=== PATIENT | male | born 1970 | race Hispanic/Latino ===

== ENCOUNTER 2017-04-16 19:18 | Inpatient (IN) | payer MEDICARE, OTHER ==
[2017-04-16] MEDS ORDERED: DiphenhydrAMINE 50 mg/ml Inj ONE (19:34)
--- NOTE | 2017-04-16 19:37 | ED PDOC ---
Arrival/HPI - General Time Seen by Provider: 04/16/17 19:21 Historian: Patient EM Caveat: Psychotic - History of Present Illness Narrative History of Present Illness (Text): 04/16/17 19:36 46 year old male presents to the emergency department after reportedly becoming agitated and aggressive at [facility] prior to arrival. Past Medical History - Provider Review Nursing Documentation Reviewed: Yes - Infectious Disease Hx of Infectious Diseases: None - Tetanus Immunization Tetanus Immunization: Unknown - Past Medical History Past Medical History: No Previous - Cardiac Hx Cardiac Disorders: No Hx Hypertension: Yes - Pulmonary Hx Tuberculosis: No - Neurological HX Cerebrovascular Accident: No Hx Seizures: No - HEENT Hx HEENT Disorder: No - Renal Hx Renal Disorder: No - Endocrine/Metabolic Hx Endocrine Disorders: No - Hematological/Oncological Hx Blood Disorders: No - Integumentary Hx Dermatological Disorder: No - Musculoskeletal/Rheumatological Hx Musculoskeletal Disorders: No Hx Falls: No - Gastrointestinal Hx Gastrointestinal Disorders: No - Genitourinary/Gynecological Hx Sexually Transmitted Diseases: No - Psychiatric Hx Anxiety: Yes Hx Depression: Yes Hx Schizophrenia: Yes (paranoid) Hx Substance Use: Yes - Past Surgical History Past Surgical History: No Previous - Anesthesia Hx Anesthesia: No - Suicidal Assessment Feels Threatened In Home Enviroment: No Family/Social History - Physician Review Nursing Documentation Reviewed: Yes Family/Social History: Unknown Family HX Smoking Status: Former Smoker Hx Alcohol Use: Yes Hx Substance Use: Yes Hx Substance Use Treatment: No Allergies/Home Meds Allergies/Adverse Reactions: Allergies No Known Allergies Allergy (Verified 03/23/16 03:18) Review of Systems - Review of Systems Systems not reviewed;Unavailable: Psychotic Physical Exam - Physical Exam Narrative Physical Exam (Text): - Physical exam Patient appears age appropriate, speaking full sentences without difficulty - Systems Exam Head: Present: Atraumatic, Normocephalic Pupils: Present: PERRL Extraocular Muscles: Present: EOMI Conjunctiva: Present: Normal Mouth: Present: Moist Mucous Membranes Neck: Present: Normal Range of Motion. No: MIDLINE TENDERNESS, Paraspinal Tenderness Respiratory/Chest: Present: Clear to Auscultation, Good Air Exchange. No: Respiratory Distress, Accessory Muscle Use, Tachypnic Cardiovascular: Present: Regular Rate and Rhythm, Normal S1, S2, Peripheral Pulses Present. No: Murmurs Abdomen: Present: Normal Bowel Sounds, No: Tenderness, Peritoneal Signs, Rebound, Guarding, Distention Back: Present: Normal Inspection. No: Midline Tenderness, Paraspinal Tenderness Upper Extremity: Present: Normal Inspection. No: Cyanosis, Edema Lower Extremity: Present: Normal Inspection. No: Edema Neurological: Present: GCS=15, Speech Normal, cranial nerves II through XII fully intact with no cerebellar abnormality, neuro-sensory fully intact. No focal neurological deficits. Skin: Present: Warm, Dry, Normal Color. No: Rashes Lymphatic: Present: OX3, NI, NC Psychiatric: Present: Alert, denies suicidal or homicidal ideations. Yelling, aggressive, combative. Vital Signs Reviewed: Yes Vital Signs Temp Pulse Resp BP Pulse Ox 04/16/17 20:35 94 H 16 114/82 95 04/16/17 19:43 20 04/16/17 19:24 98.9 F 104 H 18 159/100 H 96 Temperature: Afebrile Blood Pressure: Hypertensive Pulse: Tachycardic Respiratory Rate: Normal Appearance: Positive for: Well-Appearing, Non-Toxic, Comfortable Pain Distress: None Medical Decision Making ED Course and Treatment: Impression: 38-year-old male brought in combative, aggressive, agitated. Attempted verbal de -escalation and offered oral medications to help patient calmed down. Patient is not consolable. Patient presenting a danger to himself, staff, the patient's. Has been sedated for his protection Plan: -- Ativan, Benadryl, Haldol -- EKG, Chest X-ray -- Labs -- Reassess and disposition Prior Visits: Notes and results from previous visits were reviewed. Patient last seen in the ED on 03/23/16 for agitation, auditory hallucinations, and discharged home. Progress Notes: 04/16/17 21:[address] Cartagena in stable condition, pending monitoring, reeval, dispo - Lab Interpretations Lab Results: 04/16/17 20:30 04/16/17 20:30 Lab Results 04/16/17 20:30: Alcohol, Quantitative < 10 04/16/17 20:30: Salicylates < 1 L, Acetaminophen < 10.0 L 04/16/17 20:30: Sodium 136, Potassium 3.3 L, Chloride 103, Carbon Dioxide 23, Anion Gap 13, BUN 12, Creatinine 0.8, Est GFR ( Amer) > 60, Est GFR (Non- Af Amer) > 60, Random Glucose 138 H, Calcium 8.4, Total Bilirubin 1.8 H, AST 73 H, ALT 110 H, Alkaline Phosphatase 117, Total Protein 7.2, Albumin 4.1, Globulin 3.2, Albumin/Globulin Ratio 1.3 04/16/17 20:30: WBC 2.9 L* D, RBC 4.33, Hgb 14.0, Hct 38.5 L, MCV 88.9, MCH 32.3 , MCHC 36.4, RDW 12.4, Plt Count 133, MPV 10.2, Gran % 74.4 H, Lymph % (Auto) 14.9 L, [place] % (Auto) 8.7 H, Eos % (Auto) 1.7, Baso % (Auto) 0.3, Gran # 2.15, Lymph # 0.4 L, [place] # 0.3, Eos # 0.1, Baso # 0.01 - RAD Interpretation Radiology Orders: 04/16/17 19:45 CHEST PORTABLE [RAD] Stat - Medication Orders Current Medication Orders: Discontinued Medications Diphenhydramine HCl (Benadryl) Confirm Administered Dose 50 mg .ROUTE .STK-MED ONE Stop: 04/16/17 19:35 Last Admin: 04/16/17 20:00 Dose: Diphenhydramine HCl (Benadryl) 50 mg IM STAT STA Stop: 04/16/17 19:45 Last Admin: 04/16/17 19:45 Dose: 50 mg Haloperidol Lactate (Haldol) Confirm Administered Dose 5 mg .ROUTE .STK-MED ONE Stop: 04/16/17 19:35 Last Admin: 04/16/17 20:00 Dose: Haloperidol Lactate (Haldol) 5 mg IM STAT STA Stop: 04/16/17 19:45 Last Admin: 04/16/17 19:45 Dose: 5 mg Lorazepam (Ativan) Confirm Administered Dose 4 mg .ROUTE .STK-MED ONE Stop: 04/16/17 19:36 Last Admin: 04/16/17 20:00 Dose: Lorazepam (Ativan) 4 mg IM ONCE ONE Stop: 04/16/17 19:45 Last Admin: 04/16/17 19:45 Dose: 4 mg - Scribe Statement The provider has reviewed the documentation as recorded by the Scribe Austin Ly Provider Patriciaibe Attestation: All medical record entries made by the Aishwarya were at my direction and personally dictated by me. I have reviewed the chart and agree that the record accurately reflects my personal performance of the history, physical exam, medical decision making, and the department course for this patient. I have also personally directed, reviewed, and agree with the discharge instructions and disposition. Disposition/Present on Arrival - Present on Arrival Any Indicators Present on Arrival: No History of DVT/PE: No History of Uncontrolled Diabetes: No Urinary Catheter: No History Surgical Site Infection Following: None - Disposition Have Diagnosis and Disposition been Completed?: Yes Diagnosis: Psychosis Disposition Time: 21:34 Condition: STABLE Referrals: Seth Matt, [Primary Care Provider] - Follow up with primary
[2017-04-16] MEDS ORDERED: DiphenhydrAMINE 50 mg/ml Inj IM STA (19:44)
[2017-04-16 19:45] VITALS: BMI 23.7
[2017-04-16 20:33] LABS: ADD MANUAL DIFF? NO
[2017-04-16 20:49] LABS: BASO # 0.01 K/mm3 (0.0-2.0); BASO % 0.3 % (0.0-3.0); EOS # 0.1 (0.0-0.7); EOS % 1.7 % (1.5-5.0); GRAN # 2.15 (1.4-6.5); GRAN % 74.4 % (50.0-68.0); HEMATOCRIT 38.5 % (42.0-52.0); LYMPH # 0.4 (1.2-3.4); LYMPH % 14.9 % (22.0-35.0); MEAN CELL VOLUME 88.9 fL (80.0-105.0); MEAN CORPUSCULAR HEMOGLOBIN 32.3 pg (25.0-35.0); MEAN CORPUSCULAR HGB CONC 36.4 g/dl (31.0-37.0); MEAN PLATELET VOLUME 10.2 fl (7.0-11.0); MONO # 0.3 (0.1-0.6); MONO % 8.7 % (1.0-6.0); PLATELET COUNT 133 10^3/uL (120.0-450.0); RED CELL DISTRIBUTION WIDTH 12.4 % (11.5-14.5)
[2017-04-16 20:50] LABS: ALB/GLOB RATIO 1.3 (1.1-1.8); ALKALINE PHOSPHATASE 117 U/L (38-133); ALT/SGPT 110 U/L (7-56); AST/SGOT 73 U/L (15-59); BILIRUBIN,TOTAL 1.8 mg/dL (0.2-1.3); BLOOD UREA NITROGEN 12 mg/dL (7-21); CALCIUM 8.4 mg/dL (8.4-10.5); CARBON DIOXIDE 23 mmol/L (21-33); CHLORIDE 103 mmol/L (95-110); GFR AFRICAN-AMERICAN > 60; GLUCOSE,RANDOM 138 mg/dL (70-110); POTASSIUM 3.3 mmol/L (3.6-5.0); SODIUM 136 mmol/L (132-148); TOTAL PROTEIN 7.2 g/dL (5.8-8.3)
[2017-04-16 20:52] LABS: WHITE BLOOD COUNT 2.9 10^3/ul (4.5-11.0)
--- NOTE | 2017-04-16 22:39 | ED PDOC ---
Physical Exam Vital Signs Reviewed: Yes Vital Signs Temp Pulse Resp BP Pulse Ox 04/17/17 02:59 98.1 F 85 16 112/73 98 04/17/17 02:19 97.9 F 87 16 04/16/17 23:30 98.2 F 81 16 114/76 99 04/16/17 20:35 94 H 16 114/82 95 04/16/17 19:43 20 04/16/17 19:24 98.9 F 104 H 18 159/100 H 96 Temperature: Afebrile Blood Pressure: Hypertensive Pulse: Regular Respiratory Rate: Normal Appearance: Positive for: Well-Appearing, Non-Toxic, Comfortable Pain Distress: None Mental Status: Positive for: Alert and Oriented X 3 Medical Decision Making ED Course and Treatment: 04/16/17 22:38 Case endorsed to me by Dr. Odonnell in stable condition, pending monitoring, reevaluation, and disposition. 04/17/17 03:54 Pt seen and evaluated by NICOLE Gonzalez, who discussed case with psychiatrist Dr. Mackay. Pt will be admitted to [facility] for schizophrenia under Dr. White's service. - Lab Interpretations Lab Results: 04/16/17 20:30 04/16/17 20:30 Lab Results 04/16/17 23:24: Urine Opiates Screen Negative, Urine Methadone Screen Negative, Ur Barbiturates Screen Negative, Ur Phencyclidine Scrn Negative, Ur Amphetamines Screen Negative, U Benzodiazepines Scrn Negative, U Oth Cocaine Metabols Negative, U Cannabinoids Screen Negative 04/16/17 23:00: Urine Color Yellow, Urine Appearance Clear, Urine pH 6.0, Ur Specific [place] 1.010, Urine Protein Trace H, Urine Glucose (UA) Negative, Urine Ketones Negative, Urine Blood Moderate H, Urine Nitrate Negative, Urine Bilirubin Negative, Urine Urobilinogen 2.0 H, Ur Leukocyte Esterase Negative, Urine RBC 5 - 10, Urine WBC 1 - 3, Ur Epithelial Cells 1 - 3 04/16/17 20:30: Alcohol, Quantitative < 10 04/16/17 20:30: Salicylates < 1 L, Acetaminophen < 10.0 L 04/16/17 20:30: Sodium 136, Potassium 3.3 L, Chloride 103, Carbon Dioxide 23, Anion Gap 13, BUN 12, Creatinine 0.8, Est GFR ( Amer) > 60, Est GFR (Non- Af Amer) > 60, Random Glucose 138 H, Calcium 8.4, Total Bilirubin 1.8 H, AST 73 H, ALT 110 H, Alkaline Phosphatase 117, Total Protein 7.2, Albumin 4.1, Globulin 3.2, Albumin/Globulin Ratio 1.3 04/16/17 20:30: WBC 2.9 L* D, RBC 4.33, Hgb 14.0, Hct 38.5 L, MCV 88.9, MCH 32.3 , MCHC 36.4, RDW 12.4, Plt Count 133, MPV 10.2, Gran % 74.4 H, Lymph % (Auto) 14.9 L, [place] % (Auto) 8.7 H, Eos % (Auto) 1.7, Baso % (Auto) 0.3, Gran # 2.15, Lymph # 0.4 L, [place] # 0.3, Eos # 0.1, Baso # 0.01 - RAD Interpretation Radiology Orders: 04/16/17 19:45 CHEST PORTABLE [RAD] Stat - Medication Orders Current Medication Orders: Discontinued Medications Diphenhydramine HCl (Benadryl) Confirm Administered Dose 50 mg .ROUTE .STK-MED ONE Stop: 04/16/17 19:35 Last Admin: 04/16/17 20:00 Dose: Diphenhydramine HCl (Benadryl) 50 mg IM STAT STA Stop: 04/16/17 19:45 Last Admin: 04/16/17 19:45 Dose: 50 mg Haloperidol Lactate (Haldol) Confirm Administered Dose 5 mg .ROUTE .STK-MED ONE Stop: 04/16/17 19:35 Last Admin: 04/16/17 20:00 Dose: Haloperidol Lactate (Haldol) 5 mg IM STAT STA Stop: 04/16/17 19:45 Last Admin: 04/16/17 19:45 Dose: 5 mg Lorazepam (Ativan) Confirm Administered Dose 4 mg .ROUTE .STK-MED ONE Stop: 04/16/17 19:36 Last Admin: 04/16/17 20:00 Dose: Lorazepam (Ativan) 4 mg IM ONCE ONE Stop: 04/16/17 19:45 Last Admin: 04/16/17 19:45 Dose: 4 mg Disposition/Present on Arrival - Present on Arrival Any Indicators Present on Arrival: No History of DVT/PE: No History of Uncontrolled Diabetes: No Urinary Catheter: No History of Decub. Ulcer: No History Surgical Site Infection Following: None - Disposition Have Diagnosis and Disposition been Completed?: Yes Diagnosis: Psychosis Disposition: HOSPITALIZED Disposition Time: 04:00 Patient Problems: Current Active Problems Problem Status Onset Psychosis Acute Condition: STABLE
[2017-04-16 23:31] LABS: URINE BILIRUBIN NEGATIVE (NEGATIVE); URINE BLOOD MODERATE (NEGATIVE); URINE GLUCOSE (UA) NEGATIVE (NEGATIVE); URINE KETONE NEGATIVE (NEGATIVE); URINE LEUKOCYTE ESTERASE NEGATIVE Leu/uL (NEGATIVE); URINE PROTEIN TRACE mg/dL (<30 mg/dL)
[2017-04-16 23:39] LABS: URINE APPEARANCE CLEAR (CLEAR); URINE COLOR YELLOW (YELLOW)
[2017-04-17] MEDS ORDERED: Magnesium Hydroxide Susp 30 ml UD PO PRN (05:00)
[2017-04-17] MEDS ORDERED: Alum-Mag Hydrox-Simethicone Susp (30 mL) PO PRN (05:00)
--- NOTE | 2017-04-17 08:08 | RAD ---
HISTORY: medical clearence COMPARISON: 03/23/2016 FINDINGS: LUNGS: No active pulmonary disease. PLEURA: No significant pleural effusion identified, no pneumothorax apparent. CARDIOVASCULAR: Normal. OSSEOUS STRUCTURES: No significant abnormalities. VISUALIZED UPPER ABDOMEN: Normal. OTHER FINDINGS: None. IMPRESSION: No active disease.
[2017-04-17 08:22] LABS: CHOLESTEROL 159 mg/dL (130-200); GLUCOSE,FASTING 100 mg/dL (65-110)
--- NOTE | 2017-04-17 10:03 | PCM.PSYCH ---
Initial Psychiatric Evaluation - Initial Psychiatric Evaluation Type of Admission: Voluntary Legal Status: Capacity History of Present Illness and Precipitating Events: Patient is a 46 year old male with history of Schizoaffective Disorder, Obsessive Compulsive Disorder, Severe alcohol use this order, prior admissions ( most recently 10/2015 at [facility] multiple suicide attempts, poor follow up with after care recommendations and medications who presented to the emergency department after becoming agitated and aggressive at [facility]. ER records indicate that patient was brought in combative, aggressive, agitated. Patient required Haldol 5 mg, Benadryl 50 mg IM and Ativan 4 mg IM x1 at 7:45 pm after attempts at verbal de-escalation were unsuccessful. I reviewed ER notes and prior records and met with patient at bedside. Patient is noticeably disheveled. He is oriented to month your location however only superficially oriented to circumstances. Patient denies depression however reports that he has been paranoid about people following him and wanting to do him harm. Regarding auditory hallucinations patient response "not really". As a conversation progress patient becomes increasingly disorganized and delusions became more apparent. Patient reports that he was brought into ER because he was yelling at the newspaper. Denies that he was yelling at other people which he states that the [facility] erroneously believed. As to why he was yelling at the newpaper, patient reports that "Joel came to me at that time to yell at the paper". Patient then incoherently rambles "Slade Nunes and Willie Mahmood". Patients affect is odd and brittle. Thus far he has been tenuous control unit and willing to comply with treatment regimen recommended by the provider when reviewed at bedside this morning. His insight and judgment are poor. Patient was also seen in the ED on 03/23/16 for agitation, auditory hallucinations, and discharged home. PSYCHIATRIC HISTORY Patient reports at least 17 prior admissions. Indicates most recent admission was at [facility] in 10/2015. He was discharged on Depakote ER 500 mg bid, Risperdal 1 mg TID, cogentin 0.5 mg AM/HS and trazodone 50 mg HS. After discharge patient did not follow up with aftercare recommendations and did not take any psychiatric medications. Patient also admitted 09/10-09/18/15, 07/18-07/29/14 and 08/28/11-08/30/11 at [facility]. Patient does not recall any medications trials except for Abilify and he does not recall if Abilify was beneficial or not. Patient reports prior SA however cannot or does not want to discuss any details. SOCIAL HISTORY Patient was born and raised in [place]. He is single. He denies having any children. Patient reports that he has been living at the [facility] since July 17, 2016. He used to live with his mother. Patient reports that he has been a lifelong alcoholic. Recently he reports drinking alcohol, approximately 3 six-packs daily, most recent use was two days ago. Patient denies any drug use. Patient denies any tobacco use. Current Medications: Active Medications Generic Name Dose Route Start Last Admin Trade Name Freq PRN Reason Stop Dose Admin Acetaminophen 650 mg 04/17/17 05:00 Tylenol 325mg Tab PO Q4H PRN Pain, Mild (1-3) Al Hydrox/Mg Hydrox/Simethicone 30 ml 04/17/17 05:00 Maalox Plus 30 Ml PO DAILY PRN Upset Stomach Magnesium Hydroxide 30 ml 04/17/17 05:00 Milk Of Magnesia PO DAILY PRN Constipation Past Psychiatric History - Past Psychiatric History Pertinent Medical Hx (Current Medical&Sleep Prob, Allergies): Allergies Allergy/AdvReac Type Severity Reaction Status Date / Time No Known Allergies Allergy Verified 04/17/17 05:25 FLUoxetine [Prozac] 40 mg PO DAILY #14 cap 06/17/15 Folic Acid 1 mg PO DAILY #14 tab 06/17/15 Multimineral/Multivitamin [Therapeutic-M Tab] 1 tab PO DAILY #14 tab 06/17/15 Thiamine [Vitamin B1 Tab] 100 mg PO DAILY #14 tab 06/17/15 risperiDONE [RisperDAL Tab] 2 mg PO AMHS #28 tab 06/17/15 Mental Status Examination - Affect Affect: Constricted - Motor Activity Motor Activity: Psychomotor Agitation - Reliability in Providing Information Reliability in Providing Information: Poor, due to alteration in thoughts - Speech Speech: Disorganized - Mood Mood: Other (Irritable) - Formal Thought Process Formal Thought Process: Hallucinations, Paranoia, Loosening of associations - Obsessions/Compulsions Obsessions: No Compulsions: No - Cognitive Functions Orientation: Person Sensorium: Drowsy Attention/Concentration: Easily distracted Estimate of Intelligence: Average Judgement: Imparied, as evidence by: Poor judgement, Imparied, as evidence by: Lack of insight into illness Memory: Recent impaired, as evidence by: Inability to recall events of the day - Risk Risk: Homicidal, Seizure, Diminished functioning DSM 5 DX - DSM 5 DSM 5 Diagnosis: Schizoaffective Disorder OCD by hx Severe Alcohol Use Disorder - Recommended/Plan of Treatment Treatment Recommendations and Plan of Treatment: * grp, milieu and supportive tx * Risperdal 1 mg AM & HS for agitation, mood control and disorganization/ delusions * Ativan 2 mg q6 for alcohol withdrawal, this will also help with mood control. Plan to taper down * Depakote 500 mg bid for mood control * Awaiting medical f/u * Vitals reviewed and noted below: Selected Entries 04/17/17 05:26 Temperature 97.4 F L Pulse Rate 61 Respiratory 20 Rate Blood Pressure 124/94 H * Please note: NICOLE Gonzalez clinician attempted to obtain more collateral information from the [facility] on 04/17/17. The only individual present was a armed security guard, Abiodun Mejia who indicated that no information could be provided until MondayApril 18 due to lack of staff at facility. Mr. Mejia would not provide any further contact information for a primer supervisor even in consideration of emergent need for this information in the ER ER LABS 04/16/17 23:24: Urine Opiates Screen Negative, Urine Methadone Screen Negative, Ur Barbiturates Screen Negative, Ur Phencyclidine Scrn Negative, Ur Amphetamines Screen Negative, U Benzodiazepines Scrn Negative, U Oth Cocaine Metabols Negative, U Cannabinoids Screen Negative 04/16/17 23:00: Urine Color Yellow, Urine Appearance Clear, Urine pH 6.0, Ur Specific [place] 1.010, Urine Protein Trace H, Urine Glucose (UA) Negative, Urine Ketones Negative, Urine Blood Moderate H, Urine Nitrate Negative, Urine Bilirubin Negative, Urine Urobilinogen 2.0 H, Ur Leukocyte Esterase Negative, Urine RBC 5 - 10, Urine WBC 1 - 3, Ur Epithelial Cells 1 - 3 04/16/17 20:30: Alcohol, Quantitative < 10 04/16/17 20:30: Salicylates < 1 L, Acetaminophen < 10.0 L 04/16/17 20:30: Sodium 136, Potassium 3.3 L, Chloride 103, Carbon Dioxide 23, Anion Gap 13, BUN 12, Creatinine 0.8, Est GFR ( Amer) > 60, Est GFR (Non- Af Amer) > 60, Random Glucose 138 H, Calcium 8.4, Total Bilirubin 1.8 H, AST 73 H, ALT 110 H, Alkaline Phosphatase 117, Total Protein 7.2, Albumin 4.1, Globulin 3.2, Albumin/Globulin Ratio 1.3 04/16/17 20:30: WBC 2.9 L* D, RBC 4.33, Hgb 14.0, Hct 38.5 L, MCV 88.9, MCH 32.3 , MCHC 36.4, RDW 12.4, Plt Count 133, MPV 10.2, Gran % 74.4 H, Lymph % (Auto) 14.9 L, [place] % (Auto) 8.7 H, Eos % (Auto) 1.7, Baso % (Auto) 0.3, Gran # 2.15, Lymph # 0.4 L, [place] # 0.3, Eos # 0.1, Baso # 0.01 - Smoking Cessation Smoking Cessation Initiated: No
--- NOTE | 2017-04-17 10:44 | CARD ---
APPROVED REPORT EKG Measurement Heart [id number] <Conclusion> Sinus tachycardia Nonspecific ST abnormality Abnormal ECG
[2017-04-17] MEDS: Divalproex 500 mg DR(BID formulation) PO SCH (18:48)
[2017-04-18 07:55] LABS: ADD MANUAL DIFF? NO
[2017-04-18 08:03] LABS: BASO # 0.03 K/mm3 (0.0-2.0); BASO % 0.9 % (0.0-3.0); EOS # 0.1 (0.0-0.7); EOS % 1.8 % (1.5-5.0); GRAN # 2.27 (1.4-6.5); GRAN % 66.3 % (50.0-68.0); LYMPH # 0.8 (1.2-3.4); LYMPH % 22.5 % (22.0-35.0); MEAN CELL VOLUME 90.5 fL (80.0-105.0); MEAN CORPUSCULAR HEMOGLOBIN 32.4 pg (25.0-35.0); MEAN CORPUSCULAR HGB CONC 35.8 g/dl (31.0-37.0); MEAN PLATELET VOLUME 9.8 fl (7.0-11.0); MONO # 0.3 (0.1-0.6); MONO % 8.5 % (1.0-6.0); PLATELET COUNT 118 10^3/uL (120.0-450.0); RED CELL DISTRIBUTION WIDTH 12.5 % (11.5-14.5); WHITE BLOOD COUNT 3.4 10^3/ul (4.5-11.0)
[2017-04-18 08:10] LABS: ALB/GLOB RATIO 1.3 (1.1-1.8); ALKALINE PHOSPHATASE 109 U/L (38-133); ALT/SGPT 99 U/L (7-56); AST/SGOT 82 U/L (15-59); BILIRUBIN,TOTAL 1.7 mg/dL (0.2-1.3); BLOOD UREA NITROGEN 12 mg/dL (7-21); CALCIUM 8.8 mg/dL (8.4-10.5); CARBON DIOXIDE 27 mmol/L (21-33); CHLORIDE 105 mmol/L (95-110); GFR AFRICAN-AMERICAN > 60; GLUCOSE,RANDOM 92 mg/dL (70-110); POTASSIUM 3.7 mmol/L (3.6-5.0); SODIUM 139 mmol/L (132-148)
[2017-04-18] MEDS: Divalproex 500 mg DR(BID formulation) PO SCH ×2 (08:33→17:08)
--- NOTE | 2017-04-18 10:03 | CP.PCM.HP ---
<Adolfo Polk - Last Filed: 04/18/17 11:55> History of Present Illness - History of Present Illness History of Present Illness: Medicine Consult note. Dr. Vides 46yo M with PMHx of Schizoaffective disorder here for evaluation of agitation. Patient states that he does not have any medical history. Was told that he was hypertensive in the past but is not on any medications. He currently denies any medical problems. States that his mother has a history of hypothyroidism and is worried that he may have the same problem. He states that he has not been taking any medications as an out-patient. Denies any suicidal thoughts, no homicidal ideation. Denies any chest pain, no SOB. No Cough, no congestion. No N /V/D. No Abd pain. No complaints. States that he drinks 2 6-pack beers every other day. Last drink was day before last. PMHx: Schizoaffective disorder PSHx: Denies Family Hx: Denies Social Hx: Current beer use, 12 beers every other day. Denies drugs, denies tobacco NKDA No home meds Present on Admission - Present on Admission Any Indicators Present on Admission: No Review of Systems - Review of Systems All systems: reviewed and no additional remarkable complaints except - Constitutional Constitutional: absent: Chills, Fever - EENT Eyes: absent: Blurred Vision Ears: absent: Dizziness Nose/Mouth/Throat: absent: Epistaxis - Cardiovascular Cardiovascular: absent: Chest Pain, Dyspnea - Respiratory Respiratory: absent: Cough, Dyspnea - Gastrointestinal Gastrointestinal: absent: Abdominal Pain, Melena, Nausea, Vomiting - Genitourinary Genitourinary: absent: Dysuria - Musculoskeletal Musculoskeletal: absent: Back Pain - Neurological Neurological: absent: Abnormal Gait, Dizziness - Psychiatric Psychiatric: Paranoia. absent: Anxiety, Depression Past Patient History - Infectious Disease Hx of Infectious Diseases: None - Tetanus Immunizations Tetanus Immunization: Unknown - Past Social History Smoking Status: Former Smoker - CARDIAC Hx Cardiac Disorders: No Hx Hypertension: Yes - PULMONARY Hx Respiratory Disorders: No Hx Tuberculosis: No - NEUROLOGICAL HX Cerebrovascular Accident: No Hx Seizures: No - HEENT Hx HEENT Problems: No - RENAL Hx Chronic Kidney Disease: No - ENDOCRINE/METABOLIC Hx Endocrine Disorders: No - HEMATOLOGICAL/ONCOLOGICAL Hx Blood Disorders: No - INTEGUMENTARY Hx Dermatological Problems: No - MUSCULOSKELETAL/RHEUMATOLOGICAL Hx Musculoskeletal Disorders: No Hx Falls: No - GASTROINTESTINAL Hx Gastrointestinal Disorders: No - GENITOURINARY/GYNECOLOGICAL Hx Sexually Transmitted Disorders: No Hx Urinary Tract Infection: Yes - PSYCHIATRIC Hx Physical Abuse: No Hx Substance Use: No - SURGICAL HISTORY Hx Surgeries: No - ANESTHESIA Hx Anesthesia: No Meds Allergies/Adverse Reactions: Allergies Allergy/AdvReac Type Severity Reaction Status Date / Time No Known Allergies Allergy Verified 04/17/17 05:25 Physical Exam - Constitutional Appears: No Acute Distress, Chronically Ill Additional comments: dishelved, not well groomed - Head Exam Head Exam: ATRAUMATIC, NORMAL INSPECTION, NORMOCEPHALIC - Eye Exam Eye Exam: EOMI, Normal appearance, PERRL - ENT Exam ENT Exam: Mucous Membranes Moist, Normal Exam - Neck Exam Neck exam: Positive for: Full Rom - Respiratory Exam Respiratory Exam: Clear to Auscultation Bilateral, NORMAL BREATHING PATTERN. absent: Rales, Rhonchi, Wheezes - Cardiovascular Exam Cardiovascular Exam: RRR, +S1, +S2. absent: JVD - GI/Abdominal Exam GI & Abdominal Exam: Soft. absent: Distended, Guarding, Rigid, Tenderness - Extremities Exam Extremities exam: Positive for: normal inspection - Back Exam Back exam: NORMAL INSPECTION - Neurological Exam Neurological exam: Alert, Normal Gait, Oriented x3 - Psychiatric Exam Psychiatric exam: Flat Affect - Skin Skin Exam: Dry, Intact, Normal Color, Warm Results - Vital Signs Recent Vital Signs: Last Vital Signs Temp 98.3 F 04/18/17 08:13 Pulse 123 H 04/18/17 08:13 Resp 18 04/18/17 08:13 BP 133/88 04/18/17 08:13 Pulse Ox 99 04/17/17 05:00 - Labs Result Diagrams: 04/18/17 07:35 04/18/17 07:35 Labs: Laboratory Results - last 24 hr 04/17/17 04/18/17 04/18/17 07:30 07:35 07:35 WBC 3.4 L RBC 4.20 Hgb 13.6 L Hct 38.0 L MCV 90.5 MCH 32.4 MCHC 35.8 RDW 12.5 Plt Count 118 L MPV 9.8 Gran % 66.3 Lymph % (Auto) 22.5 [place] % (Auto) 8.5 H Eos % (Auto) 1.8 Baso % (Auto) 0.9 Gran # 2.27 Lymph # 0.8 L [place] # 0.3 Eos # 0.1 Baso # 0.03 Sodium 139 Potassium 3.7 Chloride 105 Carbon Dioxide 27 Anion Gap 11 BUN 12 Creatinine 0.8 Est GFR ( Amer) > 60 Est GFR (Non-Af Amer) > 60 Random Glucose 92 Calcium 8.8 Total Bilirubin 1.7 H AST 82 H ALT 99 H Alkaline Phosphatase 109 Total Protein 7.0 Albumin 3.9 Globulin 3.1 Albumin/Globulin Ratio 1.3 RPR Nonreactive Assessment & Plan - Assessment and Plan (Free Text) Assessment: 46yo M with PMHx of schizoaffective disorder here for evaluation of agitation. Medicine consulted for clearance. 1. Agitation Hx of Schizoaffective Disorder Management as per Primary psych team TSH level is wnl 2. Elevated Transaminases likely in the setting of ETOH abuse 3. Leukocytopenia mildly improved since admission. Likely in the setting of ETOH abuse 4. ETOH Abuse Monitor for withdrawal symptoms management as per primary psych Cessation counseling 5. PPx Patient is ambulatory, no need for DVT ppx Tolerating diet, no need for GI ppx Patient is currently without any acute medical concerns. We will follow up labs and make our recommendations as necessary. We will sign of. Thank you for this interesting consult. Discussed case with Dr. Peewee Polk PGY1 <[facility]eewee AMIN,[facility] - Last Filed: 04/19/17 13:16> Results - Vital Signs Recent Vital Signs: Last Vital Signs Temp 98.3 F 04/19/17 08:05 Pulse 96 H 04/19/17 08:05 Resp 16 04/19/17 08:05 BP 103/74 04/19/17 08:05 Pulse Ox 99 04/17/17 05:00 - Labs Result Diagrams: 04/19/17 07:15 04/19/17 07:30 Labs: Laboratory Results - last 24 hr 04/19/17 04/19/17 07:15 07:30 WBC 3.4 L RBC 4.03 Hgb 13.0 L Hct 36.3 L MCV 90.1 MCH 32.3 MCHC 35.8 RDW 12.6 Plt Count 142 MPV 10.0 Gran % 61.3 Lymph % (Auto) 26.4 [place] % (Auto) 8.8 H Eos % (Auto) 2.6 Baso % (Auto) 0.9 Gran # 2.09 Lymph # 0.9 L [place] # 0.3 Eos # 0.1 Baso # 0.03 Sodium 139 Potassium 3.9 Chloride 107 Carbon Dioxide 27 Anion Gap 9 L BUN 9 Creatinine 0.8 Est GFR ( Amer) > 60 Est GFR (Non-Af Amer) > 60 Random Glucose 81 Calcium 9.0 Total Bilirubin 1.6 H AST 78 H ALT 94 H Alkaline Phosphatase 98 Total Protein 6.8 Albumin 3.7 Globulin 3.0 Albumin/Globulin Ratio 1.2 Attending/Attestation - Attestation I have personally seen and examined this patient.: Yes I have fully participated in the care of the patient.: Yes I have reviewed all pertinent clinical information: Yes Notes (Text): 04/19/17 13:09 Patient was seen and examined with medical assistant supervisor .Agreed with resident assessment and plan. 46yo M with PMHx of Schizoaffective disorder, chronic alcohol abuse,elevated transaminase is admitted to Psychiatric floor with agitation, history of recent heavy alcohol abuse, Patient transaminase are chronically elevated, was more worse at the time of admission due to alcohol abuse, already coming down,there is no sign of alcohol withdrawal at this time, need to be monitored for alcohol withdrawal. Neutropenia is also due to alcohol abuse, patient is afebrile, WBC count is improving. Patient is having hallucination, due to Schezophrenia, managment as per Psychiatry. As there is no active medical issue at this time, we will sign off, please call s back if any question Management plan was discussed in detail with patient Education was provided.
--- NOTE | 2017-04-18 15:02 | PCM.PYCHPN ---
Psychiatric Progress Note - Psychiatric Progress Note Patient seen today, length of contact: 30 minutes Patient Chief Complaint: "Mayor Godwin is my real father..." pt was talking about mayor Godwin and conspiracy theories, had tangential thought process. Problems Identified/Issues Discussed: Suicide/ homicide prevention, past psychiatric h/o, current psychiatric symptoms , medical problems, risk/benefits and alternatives of medications, medications compliance, coping strategies, substance abuse h/o, relapse prevention, importance of follow up with psychiatrist and therapist, discharge plan. Medical Problems: HTN, transaminitis, leukopenia Diagnostic Results: 04/18/17 07:35 04/18/17 07:35 Lab Results 04/18/17 08:00: TSH 3rd Generation 3.59 04/18/17 07:35: Sodium 139, Potassium 3.7, Chloride 105, Carbon Dioxide 27, Anion Gap 11, BUN 12, Creatinine 0.8, Est GFR ( Amer) > 60, Est GFR (Non- Af Amer) > 60, Random Glucose 92, Calcium 8.8, Total Bilirubin 1.7 H, AST 82 H, ALT 99 H, Alkaline Phosphatase 109, Total Protein 7.0, Albumin 3.9, Globulin 3.1 , Albumin/Globulin Ratio 1.3 04/18/17 07:35: WBC 3.4 L, RBC 4.20, Hgb 13.6 L, Hct 38.0 L, MCV 90.5, MCH 32.4 , MCHC 35.8, RDW 12.5, Plt Count 118 L, MPV 9.8, Gran % 66.3, Lymph % (Auto) 22.5, [place] % (Auto) 8.5 H, Eos % (Auto) 1.8, Baso % (Auto) 0.9, Gran # 2.27, Lymph # 0.8 L, [place] # 0.3, Eos # 0.1, Baso # 0.03 04/17/17 07:30: RPR Nonreactive 04/17/17 07:30: TSH 3rd Generation 4.45 04/17/17 07:30: Fasting Glucose 100, Triglycerides 150, Cholesterol 159, LDL Cholesterol Direct 115, HDL Cholesterol 30 04/16/17 23:24: Urine Opiates Screen Negative, Urine Methadone Screen Negative, Ur Barbiturates Screen Negative, Ur Phencyclidine Scrn Negative, Ur Amphetamines Screen Negative, U Benzodiazepines Scrn Negative, U Oth Cocaine Metabols Negative, U Cannabinoids Screen Negative 04/16/17 23:00: Urine Color Yellow, Urine Appearance Clear, Urine pH 6.0, Ur Specific [place] 1.010, Urine Protein Trace H, Urine Glucose (UA) Negative, Urine Ketones Negative, Urine Blood Moderate H, Urine Nitrate Negative, Urine Bilirubin Negative, Urine Urobilinogen 2.0 H, Ur Leukocyte Esterase Negative, Urine RBC 5 - 10, Urine WBC 1 - 3, Ur Epithelial Cells 1 - 3 04/16/17 20:30: Alcohol, Quantitative < 10 04/16/17 20:30: Salicylates < 1 L, Acetaminophen < 10.0 L 04/16/17 20:30: Sodium 136, Potassium 3.3 L, Chloride 103, Carbon Dioxide 23, Anion Gap 13, BUN 12, Creatinine 0.8, Est GFR ( Amer) > 60, Est GFR (Non- Af Amer) > 60, Random Glucose 138 H, Calcium 8.4, Total Bilirubin 1.8 H, AST 73 H, ALT 110 H, Alkaline Phosphatase 117, Total Protein 7.2, Albumin 4.1, Globulin 3.2, Albumin/Globulin Ratio 1.3 04/16/17 20:30: WBC 2.9 L* D, RBC 4.33, Hgb 14.0, Hct 38.5 L, MCV 88.9, MCH 32.3 , MCHC 36.4, RDW 12.4, Plt Count 133, MPV 10.2, Gran % 74.4 H, Lymph % (Auto) 14.9 L, [place] % (Auto) 8.7 H, Eos % (Auto) 1.7, Baso % (Auto) 0.3, Gran # 2.15, Lymph # 0.4 L, [place] # 0.3, Eos # 0.1, Baso # 0.01 Vital Signs Temp Pulse Resp BP Pulse Ox 04/18/17 08:13 98.3 F 123 H 18 133/88 04/17/17 16:42 72 130/89 04/17/17 05:26 97.4 F L 61 20 124/94 H 04/17/17 05:00 86 16 110/72 99 04/17/17 02:59 98.1 F 85 16 112/73 98 04/17/17 02:19 97.9 F 87 16 04/16/17 23:30 98.2 F 81 16 114/76 99 04/16/17 20:35 94 H 16 114/82 95 04/16/17 19:43 20 04/16/17 19:24 98.9 F 104 H 18 159/100 H 96 DSM 5 Symptoms Update: as per assessment: Patient is a 46 year old male with history of Schizoaffective Disorder, Obsessive Compulsive Disorder, Severe alcohol use this order, prior admissions ( most recently 10/2015 at [facility] [place]), multiple suicide attempts, poor follow up with after care recommendations and medications who presented to the emergency department after becoming agitated and aggressive at [facility]. ER records indicate that patient was brought in combative, aggressive, agitated. Patient required Haldol 5 mg, Benadryl 50 mg IM and Ativan 4 mg IM x1 at 7:45 pm after attempts at verbal de-escalation were unsuccessful. patient was seen at treatment team meeting, patient presented to be disheveled, patient presented in his manic stage, circumstantial and tangential thought process, pressured speech, thought process complicit disorganized, patient feels that he is real appearance were substituted with the foster parents, patient also believes that Mayor Godwin is his real father. Patient was switching from one topic to another topic for example on the question what patient got to the hospital patient started with statement "October 24 and as well as have meaning in that, deviled to over me, I was in [place] doing [place] laundry, do you remember I am Son[place] of the [place]...", pt then was taking about the conspiracy theories, seven oceans... Pt has no insight, poor judgment, pulse is unpredictable. Patient was offered to assuage Risperdal to Zyprexa, patient is willing to do so reluctantly. As per staff patient was feeling that devil lives in his body earlier today at the morning time, requested to be by himself, self isolative, psychotic, oddly related to others. Impression: Schizoaffective disorder, bipolar type OCD alcohol use disorder Medication Change: Yes (zyprexa started, risperdal d/c) Medical Record Reviewed: Yes Consults ordered or reviewed: Medical consult appreciated Mental Status Examination - Cognitive Function Orientation: Person Memory: Impaired Attention: Poor Concentration: Poor Association: Loose Fund of Knowledge: WNL - Mood Mood: Other (Irritable) - Affect Affect: Constricted - Speech Speech: Pressured - Formal Thought Process Formal Thought Process: Hallucinations, Delusions, Paranoia, Loosening of associations, Circumstantial - Suicidal Ideation Suicidal Ideation: No - Homicidal Ideation Homicidal Ideation: No Goal/Treatment Plan - Goal/Treatment Plan Need for Continued Stay: Remain at risks for inpatient hospitalization, Severe depression anxiety, Discharge may exacerbated symptoms, Severe functional impairment Progress Toward Problem(s) and Goals/Treatment Plan: milieu, structure, supportive therapy Zyprexa 5 mg twice a day for psychotic symptoms We'll discontinue Risperdal twice a day Depakote was initiated by Dr. Boateng When necessary medications healthcare social worker evaluation We'll monitor closely multivitamins, thiamine, folic acid Ambien at the nighttime for insomnia Estimated Date of D/C: 04/28/17 (we will monitor closely)
[2017-04-18] MEDS: Multivitamin With Minerals Tab PO SCH (17:17)
[2017-04-19] MEDS ORDERED: Lidocaine 1% Inj (20ml) SC STA (01:03)
[2017-04-19] MEDS ORDERED: DiphenhydrAMINE 50 mg/ml Inj IM STA (01:05)
[2017-04-19] MEDS ORDERED: TDAP Vaccine 0.5 mL Syr IM ONE (01:07)
[2017-04-19] MEDS ORDERED: DiphenhydrAMINE 50 mg/ml Inj ONE (01:13)
--- NOTE | 2017-04-19 01:41 | CP.PCM.PN ---
Subjective - Date & Time of Evaluation Date of Evaluation: 04/19/17 Time of Evaluation: 01:06 - Subjective Subjective: Patient was seen at bed side. He allegedly fell down and hit right side of face sustaining a laceration on lateral aspect of right eye. Denies loss of consciousness. Denies any other injuries. No arms pain, no legs pain. Was able to ambulate. Medical record was reviewed. This 46 year old white male was admitted with agitation for evaluateion, alcohol abuse, elevated transaminase, leukopenia. Has history of schizophrenia, hypothyroidism, alcohol user. Objective - Vital Signs/Intake and Output Vital Signs (last 24 hours): Temp Pulse Resp BP Pulse Ox 98.3 F 112 H 18 104/78 99 04/18/17 08:13 04/18/17 16:52 04/18/17 08:13 04/18/17 16:52 04/17/17 05:00 - Medications Medications: Current Medications Acetaminophen (Tylenol 325mg Tab) 650 mg PO Q4H PRN PRN Reason: Pain, Mild (1-3) Al Hydrox/Mg Hydrox/Simethicone (Maalox Plus 30 Ml) 30 ml PO DAILY PRN PRN Reason: Upset Stomach Benztropine Mesylate (Cogentin) 0.5 mg PO [facility] Last Admin: 04/18/17 21:38 Dose: 0.5 mg Diphenhydramine HCl (Benadryl) 50 mg PO Q6H PRN PRN Reason: Agitation Last Admin: 04/18/17 19:03 Dose: 50 mg Divalproex Sodium (Depakote Dr(*Bid*)) 500 mg PO BID [facility] PRN Reason: Protocol Last Admin: 04/18/17 17:08 Dose: 500 mg Folic Acid (Folic Acid) 1 mg PO DAILY [facility] Last Admin: 04/18/17 17:17 Dose: 1 mg Haloperidol (Haldol) 5 mg PO Q6H PRN; Protocol PRN Reason: Agitation Last Admin: 04/18/17 19:03 Dose: 5 mg Lidocaine HCl (Lidocaine 1% (20ml)) 1 ml SC ONCE STA Stop: 04/19/17 01:04 Lorazepam (Ativan) 2 mg PO Q6 [facility] PRN Reason: Protocol Last Admin: 04/19/17 00:18 Dose: 2 mg Lorazepam (Ativan) 1 mg IM STAT STA PRN Reason: Protocol Stop: 04/19/17 00:55 Magnesium Hydroxide (Milk Of Magnesia) 30 ml PO DAILY PRN PRN Reason: Constipation Multivitamins/Minerals (Therapeutic-M Tab) 1 tab PO DAILY U[facility] Last Admin: 04/18/17 17:17 Dose: 1 tab Olanzapine (Zyprexa) 5 mg PO [facility] PRN Reason: Protocol Last Admin: 04/18/17 21:39 Dose: 5 mg Thiamine HCl (Vitamin B1 Tab) 100 mg PO DAILY [facility] Last Admin: 04/18/17 17:17 Dose: 100 mg Zolpidem Tartrate (Ambien) 5 mg PO HS U[facility] PRN Reason: Protocol Last Admin: 04/18/17 21:38 Dose: 5 mg - Labs Labs: 04/18/17 07:35 04/18/17 07:35 - Constitutional Appears: Well, No Acute Distress - Head Exam Head Exam: ATRAUMATIC, NORMAL INSPECTION, NORMOCEPHALIC - Eye Exam Additional comments: There is a 0.5 cm size complex laceration on lateral aspect of right eye. Eye vision bilaterally is normal. - ENT Exam ENT Exam: Normal External Ear Exam - Neck Exam Neck Exam: Normal Inspection - Respiratory Exam Respiratory Exam: NORMAL BREATHING PATTERN - Cardiovascular Exam Cardiovascular Exam: absent: JVD - GI/Abdominal Exam GI & Abdominal Exam: absent: Distended - Rectal Exam Rectal Exam: Deferred - Extremities Exam Extremities Exam: Normal Inspection - Back Exam Back Exam: NORMAL INSPECTION - Neurological Exam Neurological Exam: Alert, Oriented x3 - Psychiatric Exam Psychiatric exam: Normal Affect, Normal Mood - Skin Skin Exam: Normal Color Assessment and Plan - Assessment and Plan (Free Text) Assessment: S/P fall. Right paraorbital laceration. Cerebral contusion. Schizophrenia. Alcohol abuse. Hypothyroidism. Elevated transaminase. Leukopenia. Plan: Right para orbital laceration was sutured with 4-0 absorbable suture.Silk was not available. CT head without contrast was ordered. Will keep patient on neurocheck for 24 hours. Continue present management.
[2017-04-19 07:43] LABS: ADD MANUAL DIFF? NO
[2017-04-19 07:49] LABS: BASO # 0.03 K/mm3 (0.0-2.0); BASO % 0.9 % (0.0-3.0); EOS # 0.1 (0.0-0.7); EOS % 2.6 % (1.5-5.0); GRAN # 2.09 (1.4-6.5); GRAN % 61.3 % (50.0-68.0); HEMATOCRIT 36.3 % (42.0-52.0); LYMPH # 0.9 (1.2-3.4); LYMPH % 26.4 % (22.0-35.0); MEAN CELL VOLUME 90.1 fL (80.0-105.0); MEAN CORPUSCULAR HEMOGLOBIN 32.3 pg (25.0-35.0); MEAN CORPUSCULAR HGB CONC 35.8 g/dl (31.0-37.0); MONO # 0.3 (0.1-0.6); MONO % 8.8 % (1.0-6.0); PLATELET COUNT 142 10^3/uL (120.0-450.0); RED CELL DISTRIBUTION WIDTH 12.6 % (11.5-14.5); WHITE BLOOD COUNT 3.4 10^3/ul (4.5-11.0)
[2017-04-19] MEDS: Multivitamin With Minerals Tab PO SCH (08:00)
[2017-04-19] MEDS: Divalproex 500 mg DR(BID formulation) PO SCH ×2 (08:00→17:42)
[2017-04-19 08:09] LABS: ALB/GLOB RATIO 1.2 (1.1-1.8); ALKALINE PHOSPHATASE 98 U/L (38-133); ALT/SGPT 94 U/L (7-56); AST/SGOT 78 U/L (15-59); BILIRUBIN,TOTAL 1.6 mg/dL (0.2-1.3); BLOOD UREA NITROGEN 9 mg/dL (7-21); CARBON DIOXIDE 27 mmol/L (21-33); CHLORIDE 107 mmol/L (98-107); GFR AFRICAN-AMERICAN > 60; GLUCOSE,RANDOM 81 mg/dL (70-110); POTASSIUM 3.9 mmol/L (3.6-5.0); SODIUM 139 mmol/L (132-148); TOTAL PROTEIN 6.8 g/dL (5.8-8.3)
--- NOTE | 2017-04-19 08:18 | CT ---
PROCEDURE: CT HEAD WITHOUT CONTRAST. HISTORY: fell, has right paraorbital laceration COMPARISON: None available. TECHNIQUE: Axial computed tomography images were obtained through the head/brain without intravenous contrast. Radiation dose: Total exam DLP = 699.96 mGy-cm. This CT exam was performed using one or more of the following dose reduction techniques: Automated exposure control, adjustment of the mA and/or kV according to patient size, and/or use of iterative reconstruction technique. FINDINGS: HEMORRHAGE: No intracranial hemorrhage. BRAIN: No mass effect or edema. There appears be mild chronic periventricular white matter ischemic changes. Localized fat right posterior superior parietal cortical atrophic changes VENTRICLES: Unremarkable. No hydrocephalus. CALVARIUM: Unremarkable. PARANASAL SINUSES: Unremarkable as visualized. No significant inflammatory changes. MASTOID AIR CELLS: Unremarkable as visualized. No inflammatory changes. OTHER FINDINGS: Mild right periorbital, supraorbital and right frontotemporal soft tissue swelling IMPRESSION: No acute intracranial hemorrhage. Mild right periorbital/ supraorbital and frontotemporal soft tissue swelling Mild chronic periventricular white matter ischemic changes. Mild localized right posterior superior parietal cortical atrophic changes
--- NOTE | 2017-04-19 15:27 | PCM.PYCHPN ---
Psychiatric Progress Note - Psychiatric Progress Note Patient seen today, length of contact: 30 minutes Patient Chief Complaint: "I am fine, I need to have some rest..." Problems Identified/Issues Discussed: Suicide/ homicide prevention, past psychiatric h/o, current psychiatric symptoms , medical problems, risk/benefits and alternatives of medications, medications compliance, coping strategies, substance abuse h/o, relapse prevention, importance of follow up with psychiatrist and therapist, discharge plan. Medical Problems: HTN, transaminitis, leukopenia Diagnostic Results: 04/18/17 07:35 04/18/17 07:35 Lab Results 04/18/17 08:00: TSH 3rd Generation 3.59 04/18/17 07:35: Sodium 139, Potassium 3.7, Chloride 105, Carbon Dioxide 27, Anion Gap 11, BUN 12, Creatinine 0.8, Est GFR ( Amer) > 60, Est GFR (Non- Af Amer) > 60, Random Glucose 92, Calcium 8.8, Total Bilirubin 1.7 H, AST 82 H, ALT 99 H, Alkaline Phosphatase 109, Total Protein 7.0, Albumin 3.9, Globulin 3.1 , Albumin/Globulin Ratio 1.3 04/18/17 07:35: WBC 3.4 L, RBC 4.20, Hgb 13.6 L, Hct 38.0 L, MCV 90.5, MCH 32.4 , MCHC 35.8, RDW 12.5, Plt Count 118 L, MPV 9.8, Gran % 66.3, Lymph % (Auto) 22.5, [place] % (Auto) 8.5 H, Eos % (Auto) 1.8, Baso % (Auto) 0.9, Gran # 2.27, Lymph # 0.8 L, [place] # 0.3, Eos # 0.1, Baso # 0.03 04/17/17 07:30: RPR Nonreactive 04/17/17 07:30: TSH 3rd Generation 4.45 04/17/17 07:30: Fasting Glucose 100, Triglycerides 150, Cholesterol 159, LDL Cholesterol Direct 115, HDL Cholesterol 30 04/16/17 23:24: Urine Opiates Screen Negative, Urine Methadone Screen Negative, Ur Barbiturates Screen Negative, Ur Phencyclidine Scrn Negative, Ur Amphetamines Screen Negative, U Benzodiazepines Scrn Negative, U Oth Cocaine Metabols Negative, U Cannabinoids Screen Negative 04/16/17 23:00: Urine Color Yellow, Urine Appearance Clear, Urine pH 6.0, Ur Specific [place] 1.010, Urine Protein Trace H, Urine Glucose (UA) Negative, Urine Ketones Negative, Urine Blood Moderate H, Urine Nitrate Negative, Urine Bilirubin Negative, Urine Urobilinogen 2.0 H, Ur Leukocyte Esterase Negative, Urine RBC 5 - 10, Urine WBC 1 - 3, Ur Epithelial Cells 1 - 3 04/16/17 20:30: Alcohol, Quantitative < 10 04/16/17 20:30: Salicylates < 1 L, Acetaminophen < 10.0 L 04/16/17 20:30: Sodium 136, Potassium 3.3 L, Chloride 103, Carbon Dioxide 23, Anion Gap 13, BUN 12, Creatinine 0.8, Est GFR ( Amer) > 60, Est GFR (Non- Af Amer) > 60, Random Glucose 138 H, Calcium 8.4, Total Bilirubin 1.8 H, AST 73 H, ALT 110 H, Alkaline Phosphatase 117, Total Protein 7.2, Albumin 4.1, Globulin 3.2, Albumin/Globulin Ratio 1.3 04/16/17 20:30: WBC 2.9 L* D, RBC 4.33, Hgb 14.0, Hct 38.5 L, MCV 88.9, MCH 32.3 , MCHC 36.4, RDW 12.4, Plt Count 133, MPV 10.2, Gran % 74.4 H, Lymph % (Auto) 14.9 L, [place] % (Auto) 8.7 H, Eos % (Auto) 1.7, Baso % (Auto) 0.3, Gran # 2.15, Lymph # 0.4 L, [place] # 0.3, Eos # 0.1, Baso # 0.01 Vital Signs Temp Pulse Resp BP Pulse Ox 04/18/17 08:13 98.3 F 123 H 18 133/88 04/17/17 16:42 72 130/89 04/17/17 05:26 97.4 F L 61 20 124/94 H 04/17/17 05:00 86 16 110/72 99 04/17/17 02:59 98.1 F 85 16 112/73 98 04/17/17 02:19 97.9 F 87 16 04/16/17 23:30 98.2 F 81 16 114/76 99 04/16/17 20:35 94 H 16 114/82 95 04/16/17 19:43 20 04/16/17 19:24 98.9 F 104 H 18 159/100 H 96 Temp Pulse Resp BP Pulse Ox 98.3 F 96 H 16 103/74 99 04/19/17 08:05 04/19/17 08:05 04/19/17 08:05 04/19/17 08:05 04/17/17 05:00 CT of the head was done 04/19/17: no acute intracraneall hemorrhages, mild right periorbital/spraorbital and frontotemporal soft tissue swelling, ishcemic chngges in the periventricular white matter changes, some atrophic changes. DSM 5 Symptoms Update: Patient is a 46 year old male with history of Schizoaffective Disorder, Obsessive Compulsive Disorder, Severe alcohol use this order, prior admissions ( most recently 10/2015 at [facility] [place]), multiple suicide attempts, poor follow up with after care recommendations and medications who presented to the emergency department after becoming agitated and aggressive at [facility]. as per RN report pt was restless and psychotic, was keep going to other patients rooms, pt was actively hallucinating and needed to be medicated with haldol and benadryl, pt was wearing baggy pants and slipped and failed yesterday , pt was seen by medical team, needed to have three sutures. pt is currently is on 1:1 observation, meds adjusted. pt was seen today, pt is comfortably resting, pt was easily arousable, pt was falling asleep during the interview, but seems to be less psychotic. pt ate with assistance of 1:1 (due to drowsiness). Impression: Schizoaffective disorder, bipolar type OCD alcohol use disorder Medication Change: No Medical Record Reviewed: Yes Consults ordered or reviewed: Medical consult appreciated Mental Status Examination - Cognitive Function Orientation: Person Memory: Impaired Attention: Poor Concentration: Poor Association: Loose Fund of Knowledge: WNL - Mood Mood: Other (Irritable) - Affect Affect: Constricted - Speech Speech: Pressured - Formal Thought Process Formal Thought Process: Hallucinations, Delusions, Paranoia, Loosening of associations, Circumstantial - Suicidal Ideation Suicidal Ideation: No - Homicidal Ideation Homicidal Ideation: No Goal/Treatment Plan - Goal/Treatment Plan Need for Continued Stay: Remain at risks for inpatient hospitalization, Severe depression anxiety, Discharge may exacerbated symptoms, Severe functional impairment Progress Toward Problem(s) and Goals/Treatment Plan: milieu, structure, supportive therapy Zyprexa 5 mg twice a day for psychotic symptoms We'll discontinue Risperdal twice a day Depakote was initiated by Dr. Boateng When necessary medications manager social media evaluation We'll monitor closely multivitamins, thiamine, folic acid Ambien at the nighttime for insomnia CT of the head was done pt is currently is 1:1. Estimated Date of D/C: 04/28/17 (we will monitor closely)
[2017-04-20] MEDS: Divalproex 500 mg DR(BID formulation) PO SCH ×2 (09:46→17:27)
[2017-04-20] MEDS: Multivitamin With Minerals Tab PO SCH (09:47)
--- NOTE | 2017-04-20 15:13 | CP.PCM.PN ---
<Adolfo Polk - Last Filed: 04/20/17 15:07> Subjective - Date & Time of Evaluation Date of Evaluation: 04/20/17 Time of Evaluation: 12:20 - Subjective Subjective: Medicine Progress note. Dr. Vides Asked to reevaluate patient for lethargy. Patient seen and examined while he was having lunch. Patient states that he tripped and fell two nights ago and hit the right side of his face on the ground. Denies any dizziness, denies any vertigo. No chest pain, no SOB. Denies any tongue trauma, no bowel or urine incontinence. Patient denies any weakness, no fevers, no chills. States that he feels steady on his feet. Denies any new complaints. Tolerating diet. Ambulating without any assistance. CT head with right periorbital swelling, no acute findings. Objective - Vital Signs/Intake and Output Vital Signs (last 24 hours): Temp Pulse Resp BP Pulse Ox 97.5 F L 83 20 108/73 99 04/20/17 07:33 04/20/17 07:33 04/20/17 07:33 04/20/17 07:33 04/17/17 05:00 - Medications Medications: Current Medications Acetaminophen (Tylenol 325mg Tab) 650 mg PO Q4H PRN PRN Reason: Pain, Mild (1-3) Al Hydrox/Mg Hydrox/Simethicone (Maalox Plus 30 Ml) 30 ml PO DAILY PRN PRN Reason: Upset Stomach Benztropine Mesylate (Cogentin) 0.5 mg PO [facility] Last Admin: 04/20/17 09:46 Dose: 0.5 mg Diphenhydramine HCl (Benadryl) 50 mg PO Q6H PRN PRN Reason: Agitation Last Admin: 04/18/17 19:03 Dose: 50 mg Divalproex Sodium (Depakote Dr(*Bid*)) 500 mg PO BID [facility] PRN Reason: Protocol Last Admin: 04/20/17 09:46 Dose: 500 mg Folic Acid (Folic Acid) 1 mg PO DAILY [facility] Last Admin: 04/20/17 09:47 Dose: 1 mg Lorazepam (Ativan) 2 mg PO Q6 [facility] PRN Reason: Protocol Last Admin: 04/20/17 13:13 Dose: 2 mg Magnesium Hydroxide (Milk Of Magnesia) 30 ml PO DAILY PRN PRN Reason: Constipation Multivitamins/Minerals (Therapeutic-M Tab) 1 tab PO DAILY [facility] Last Admin: 04/20/17 09:47 Dose: 1 tab Olanzapine (Zyprexa) 5 mg PO AMHS [facility] PRN Reason: Protocol Last Admin: 04/20/17 09:47 Dose: 5 mg Thiamine HCl (Vitamin B1 Tab) 100 mg PO DAILY [facility] Last Admin: 04/20/17 09:47 Dose: 100 mg Ziprasidone (Geodon Inj) 20 mg IM Q6H PRN; Protocol PRN Reason: agitation/psychosis Zolpidem Tartrate (Ambien) 5 mg PO HS UMM PRN Reason: Protocol Last Admin: 04/19/17 22:13 Dose: Not Given - Labs Labs: 04/19/17 07:15 04/19/17 07:30 - Constitutional Appears: Well, No Acute Distress, Older Than Stated Age, Chronically Ill - Head Exam Additional comments: Bandaid to right mormon. mild swelling. No tenderness to palpation - ENT Exam ENT Exam: Mucous Membranes Moist - Neck Exam Neck Exam: Full ROM - Respiratory Exam Respiratory Exam: Clear to Ausculation Bilateral, NORMAL BREATHING PATTERN. absent: Accessory Muscle Use, Rales, Rhonchi, Wheezes - GI/Abdominal Exam GI & Abdominal Exam: Soft. absent: Tenderness - Extremities Exam Extremities Exam: Normal Inspection. absent: Pedal Edema - Neurological Exam Neurological Exam: Alert, Awake, Normal Gait, Oriented x3 Neuro motor strength exam: Left Lower Extremity: 5, Right Lower Extremity: 5 - Skin Skin Exam: Intact, Normal Color, Warm Assessment and Plan - Assessment and Plan (Free Text) Assessment: 46yo M with Schizoaffective disorder. In-patient psych for treatment. S/p fall on 04/19 early AM. Reconsulted for evaluation of lethargy Patient was observed ambulating freely, without any assistance in the psych interiano. He states that he had a mechanical fall two nights ago. - CT head reviewed, no acute intracranial findings. Rt periorbital swelling. - Labs reviewed, within normal limits - VSS - Consider related to night-time medication - no signs of ETOH withdrawal - no apparent current signs or symptoms - continue current psych treatment - no additional recommendations for medical management at this time Adolfo Polk PGY1 <Peewee AMIN,Jennifer - Last Filed: 04/20/17 16:43> Objective - Vital Signs/Intake and Output Vital Signs (last 24 hours): Temp Pulse Resp BP Pulse Ox 97.5 F L 83 20 108/73 99 04/20/17 07:33 04/20/17 07:33 04/20/17 07:33 04/20/17 07:33 04/17/17 05:00 - Medications Medications: Current Medications Acetaminophen (Tylenol 325mg Tab) 650 mg PO Q4H PRN PRN Reason: Pain, Mild (1-3) Al Hydrox/Mg Hydrox/Simethicone (Maalox Plus 30 Ml) 30 ml PO DAILY PRN PRN Reason: Upset Stomach Benztropine Mesylate (Cogentin) 0.5 mg PO [facility]HS [facility] Last Admin: 04/20/17 09:46 Dose: 0.5 mg Diphenhydramine HCl (Benadryl) 50 mg PO Q6H PRN PRN Reason: Agitation Last Admin: 04/18/17 19:03 Dose: 50 mg Divalproex Sodium (Depakote Dr(*Bid*)) 500 mg PO BID [facility] PRN Reason: Protocol Last Admin: 04/20/17 09:46 Dose: 500 mg Folic Acid (Folic Acid) 1 mg PO DAILY [facility] Last Admin: 04/20/17 09:47 Dose: 1 mg Lorazepam (Ativan) 2 mg PO Q8H [facility] PRN Reason: Protocol Magnesium Hydroxide (Milk Of Magnesia) 30 ml PO DAILY PRN PRN Reason: Constipation Multivitamins/Minerals (Therapeutic-M Tab) 1 tab PO DAILY [facility] Last Admin: 04/20/17 09:47 Dose: 1 tab Olanzapine (Zyprexa) 5 mg PO [facility] PRN Reason: Protocol Last Admin: 04/20/17 09:47 Dose: 5 mg Thiamine HCl (Vitamin B1 Tab) 100 mg PO DAILY [facility] Last Admin: 04/20/17 09:47 Dose: 100 mg Ziprasidone (Geodon Inj) 20 mg IM Q6H PRN; Protocol PRN Reason: agitation/psychosis Zolpidem Tartrate (Ambien) 5 mg PO [facility] PRN Reason: Protocol Last Admin: 04/19/17 22:13 Dose: Not Given - Labs Labs: 04/19/17 07:15 04/19/17 07:30 Attending/Attestation - Attestation I have personally seen and examined this patient.: Yes I have fully participated in the care of the patient.: Yes I have reviewed all pertinent clinical information, including history, physical exam and plan: Yes Notes (Text): 04/20/17 16:41 Patient was seen and examined with medical lab assistant .Agreed with resident assessment and plan. 46yo M with PMHx of Schizoaffective disorder, chronic alcohol abuse,elevated transaminase is admitted to Psychiatric floor with agitation, history of recent heavy alcohol abuse,Patient transaminase are chronically elevated, was more worse at the time of admission due to alcohol abuse, already coming down,there is no sign of alcohol withdrawal at this time. Neutropenia was due to alcohol abuse, WBC count has improved.Patient is afebrile. Patient had fall 2 night before, CT head is negative.there is no focal deficit.Lethargy is improving, was likely due to medications. As there is no active medical issue at this time, we will sign off, please call s back if any question Management plan was discussed in detail with patient Education was provided.
--- NOTE | 2017-04-20 15:59 | PCM.PYCHPN ---
Psychiatric Progress Note - Psychiatric Progress Note Patient seen today, length of contact: 30 minutes Patient Chief Complaint: "I am very tired... I didn't sleep for three days prior to come to the hospital " Problems Identified/Issues Discussed: Suicide/ homicide prevention, past psychiatric h/o, current psychiatric symptoms , medical problems, risk/benefits and alternatives of medications, medications compliance, coping strategies, substance abuse h/o, relapse prevention, importance of follow up with psychiatrist and therapist, discharge plan. Medical Problems: HTN, transaminitis, leukopenia Diagnostic Results: 04/18/17 07:35 04/18/17 07:35 Lab Results 04/18/17 08:00: TSH 3rd Generation 3.59 04/18/17 07:35: Sodium 139, Potassium 3.7, Chloride 105, Carbon Dioxide 27, Anion Gap 11, BUN 12, Creatinine 0.8, Est GFR ( Amer) > 60, Est GFR (Non- Af Amer) > 60, Random Glucose 92, Calcium 8.8, Total Bilirubin 1.7 H, AST 82 H, ALT 99 H, Alkaline Phosphatase 109, Total Protein 7.0, Albumin 3.9, Globulin 3.1 , Albumin/Globulin Ratio 1.3 04/18/17 07:35: WBC 3.4 L, RBC 4.20, Hgb 13.6 L, Hct 38.0 L, MCV 90.5, MCH 32.4 , MCHC 35.8, RDW 12.5, Plt Count 118 L, MPV 9.8, Gran % 66.3, Lymph % (Auto) 22.5, [place] % (Auto) 8.5 H, Eos % (Auto) 1.8, Baso % (Auto) 0.9, Gran # 2.27, Lymph # 0.8 L, [place] # 0.3, Eos # 0.1, Baso # 0.03 04/17/17 07:30: RPR Nonreactive 04/17/17 07:30: TSH 3rd Generation 4.45 04/17/17 07:30: Fasting Glucose 100, Triglycerides 150, Cholesterol 159, LDL Cholesterol Direct 115, HDL Cholesterol 30 04/16/17 23:24: Urine Opiates Screen Negative, Urine Methadone Screen Negative, Ur Barbiturates Screen Negative, Ur Phencyclidine Scrn Negative, Ur Amphetamines Screen Negative, U Benzodiazepines Scrn Negative, U Oth Cocaine Metabols Negative, U Cannabinoids Screen Negative 04/16/17 23:00: Urine Color Yellow, Urine Appearance Clear, Urine pH 6.0, Ur Specific [place] 1.010, Urine Protein Trace H, Urine Glucose (UA) Negative, Urine Ketones Negative, Urine Blood Moderate H, Urine Nitrate Negative, Urine Bilirubin Negative, Urine Urobilinogen 2.0 H, Ur Leukocyte Esterase Negative, Urine RBC 5 - 10, Urine WBC 1 - 3, Ur Epithelial Cells 1 - 3 04/16/17 20:30: Alcohol, Quantitative < 10 04/16/17 20:30: Salicylates < 1 L, Acetaminophen < 10.0 L 04/16/17 20:30: Sodium 136, Potassium 3.3 L, Chloride 103, Carbon Dioxide 23, Anion Gap 13, BUN 12, Creatinine 0.8, Est GFR ( Amer) > 60, Est GFR (Non- Af Amer) > 60, Random Glucose 138 H, Calcium 8.4, Total Bilirubin 1.8 H, AST 73 H, ALT 110 H, Alkaline Phosphatase 117, Total Protein 7.2, Albumin 4.1, Globulin 3.2, Albumin/Globulin Ratio 1.3 04/16/17 20:30: WBC 2.9 L* D, RBC 4.33, Hgb 14.0, Hct 38.5 L, MCV 88.9, MCH 32.3 , MCHC 36.4, RDW 12.4, Plt Count 133, MPV 10.2, Gran % 74.4 H, Lymph % (Auto) 14.9 L, [place] % (Auto) 8.7 H, Eos % (Auto) 1.7, Baso % (Auto) 0.3, Gran # 2.15, Lymph # 0.4 L, [place] # 0.3, Eos # 0.1, Baso # 0.01 Vital Signs Temp Pulse Resp BP Pulse Ox 04/18/17 08:13 98.3 F 123 H 18 133/88 04/17/17 16:42 72 130/89 04/17/17 05:26 97.4 F L 61 20 124/94 H 04/17/17 05:00 86 16 110/72 99 04/17/17 02:59 98.1 F 85 16 112/73 98 04/17/17 02:19 97.9 F 87 16 04/16/17 23:30 98.2 F 81 16 114/76 99 04/16/17 20:35 94 H 16 114/82 95 04/16/17 19:43 20 04/16/17 19:24 98.9 F 104 H 18 159/100 H 96 Temp Pulse Resp BP Pulse Ox 98.3 F 96 H 16 103/74 99 04/19/17 08:05 04/19/17 08:05 04/19/17 08:05 04/19/17 08:05 04/17/17 05:00 CT of the head was done 04/19/17: no acute intracraneall hemorrhages, mild right periorbital/spraorbital and frontotemporal soft tissue swelling, ishcemic chngges in the periventricular white matter changes, some atrophic changes. DSM 5 Symptoms Update: Patient is a 46 year old male with history of Schizoaffective Disorder, Obsessive Compulsive Disorder, Severe alcohol use this order, prior admissions ( most recently 10/2015 at [facility] [place]), multiple suicide attempts, poor follow up with after care recommendations and medications who presented to the emergency department after becoming agitated and aggressive at [facility]. as per RN report pt is more manageable in the unit, pt was c/o hearing voices, but less psychotic, 1:1 will be d/c today. pt was seen today, pt is comfortably resting, pt was easily arousable, pt was falling asleep during the interview, but seems to be less psychotic but c/o hearing voices, thought process still disorganized. pt tolerated meds well, no side effects observed or observed AIMS 0, no EPS. Impression: Schizoaffective disorder, bipolar type OCD alcohol use disorder Medication Change: Yes (ativan decreased) Medical Record Reviewed: Yes Consults ordered or reviewed: Medical consult and f/u appreciated Mental Status Examination - Cognitive Function Orientation: Person Memory: Impaired Attention: Poor Concentration: Poor Association: Loose Fund of Knowledge: WNL - Mood Mood: Other (Irritable) - Affect Affect: Constricted - Speech Speech: Pressured - Formal Thought Process Formal Thought Process: Hallucinations, Delusions, Paranoia, Loosening of associations, Circumstantial - Suicidal Ideation Suicidal Ideation: No - Homicidal Ideation Homicidal Ideation: No Goal/Treatment Plan - Goal/Treatment Plan Need for Continued Stay: Remain at risks for inpatient hospitalization, Severe depression anxiety, Discharge may exacerbated symptoms, Severe functional impairment Progress Toward Problem(s) and Goals/Treatment Plan: milieu, structure, supportive therapy Zyprexa 5 mg twice a day for psychotic symptoms depakote 500mg po bid for mood stabilization When necessary medications social media content manager evaluation We'll monitor closely multivitamins, thiamine, folic acid Ambien at the nighttime for insomnia CT of the head was done pt is off 1:1. medical f/u appreciated ativan decreased Estimated Date of D/C: 04/28/17 (we will monitor closely)
[2017-04-21] MEDS: Divalproex 500 mg DR(BID formulation) PO SCH ×2 (09:01→16:43)
[2017-04-21] MEDS: Multivitamin With Minerals Tab PO SCH (09:02)
--- NOTE | 2017-04-21 14:37 | PCM.PYCHPN ---
Psychiatric Progress Note - Psychiatric Progress Note Patient seen today, length of contact: 30 minutes Patient Chief Complaint: "I have two biological fathers, one is mayor Godwin and another is Quique Crowley, Manisha Javier is till monitoring me, she used to be my neighbour, I do not know what is her problem..." Problems Identified/Issues Discussed: Suicide/ homicide prevention, past psychiatric h/o, current psychiatric symptoms , medical problems, risk/benefits and alternatives of medications, medications compliance, coping strategies, substance abuse h/o, relapse prevention, importance of follow up with psychiatrist and therapist, discharge plan. Medical Problems: HTN, transaminitis, leukopenia Diagnostic Results: 04/18/17 07:35 04/18/17 07:35 Lab Results 04/18/17 08:00: TSH 3rd Generation 3.59 04/18/17 07:35: Sodium 139, Potassium 3.7, Chloride 105, Carbon Dioxide 27, Anion Gap 11, BUN 12, Creatinine 0.8, Est GFR ( Amer) > 60, Est GFR (Non- Af Amer) > 60, Random Glucose 92, Calcium 8.8, Total Bilirubin 1.7 H, AST 82 H, ALT 99 H, Alkaline Phosphatase 109, Total Protein 7.0, Albumin 3.9, Globulin 3.1 , Albumin/Globulin Ratio 1.3 04/18/17 07:35: WBC 3.4 L, RBC 4.20, Hgb 13.6 L, Hct 38.0 L, MCV 90.5, MCH 32.4 , MCHC 35.8, RDW 12.5, Plt Count 118 L, MPV 9.8, Gran % 66.3, Lymph % (Auto) 22.5, [place] % (Auto) 8.5 H, Eos % (Auto) 1.8, Baso % (Auto) 0.9, Gran # 2.27, Lymph # 0.8 L, [place] # 0.3, Eos # 0.1, Baso # 0.03 04/17/17 07:30: RPR Nonreactive 04/17/17 07:30: TSH 3rd Generation 4.45 04/17/17 07:30: Fasting Glucose 100, Triglycerides 150, Cholesterol 159, LDL Cholesterol Direct 115, HDL Cholesterol 30 04/16/17 23:24: Urine Opiates Screen Negative, Urine Methadone Screen Negative, Ur Barbiturates Screen Negative, Ur Phencyclidine Scrn Negative, Ur Amphetamines Screen Negative, U Benzodiazepines Scrn Negative, U Oth Cocaine Metabols Negative, U Cannabinoids Screen Negative 04/16/17 23:00: Urine Color Yellow, Urine Appearance Clear, Urine pH 6.0, Ur Specific [place] 1.010, Urine Protein Trace H, Urine Glucose (UA) Negative, Urine Ketones Negative, Urine Blood Moderate H, Urine Nitrate Negative, Urine Bilirubin Negative, Urine Urobilinogen 2.0 H, Ur Leukocyte Esterase Negative, Urine RBC 5 - 10, Urine WBC 1 - 3, Ur Epithelial Cells 1 - 3 04/16/17 20:30: Alcohol, Quantitative < 10 04/16/17 20:30: Salicylates < 1 L, Acetaminophen < 10.0 L 04/16/17 20:30: Sodium 136, Potassium 3.3 L, Chloride 103, Carbon Dioxide 23, Anion Gap 13, BUN 12, Creatinine 0.8, Est GFR ( Amer) > 60, Est GFR (Non- Af Amer) > 60, Random Glucose 138 H, Calcium 8.4, Total Bilirubin 1.8 H, AST 73 H, ALT 110 H, Alkaline Phosphatase 117, Total Protein 7.2, Albumin 4.1, Globulin 3.2, Albumin/Globulin Ratio 1.3 04/16/17 20:30: WBC 2.9 L* D, RBC 4.33, Hgb 14.0, Hct 38.5 L, MCV 88.9, MCH 32.3 , MCHC 36.4, RDW 12.4, Plt Count 133, MPV 10.2, Gran % 74.4 H, Lymph % (Auto) 14.9 L, [place] % (Auto) 8.7 H, Eos % (Auto) 1.7, Baso % (Auto) 0.3, Gran # 2.15, Lymph # 0.4 L, [place] # 0.3, Eos # 0.1, Baso # 0.01 Vital Signs Temp Pulse Resp BP Pulse Ox 04/18/17 08:13 98.3 F 123 H 18 133/88 04/17/17 16:42 72 130/89 04/17/17 05:26 97.4 F L 61 20 124/94 H 04/17/17 05:00 86 16 110/72 99 04/17/17 02:59 98.1 F 85 16 112/73 98 04/17/17 02:19 97.9 F 87 16 04/16/17 23:30 98.2 F 81 16 114/76 99 04/16/17 20:35 94 H 16 114/82 95 04/16/17 19:43 20 04/16/17 19:24 98.9 F 104 H 18 159/100 H 96 Temp Pulse Resp BP Pulse Ox 98.3 F 96 H 16 103/74 99 04/19/17 08:05 04/19/17 08:05 04/19/17 08:05 04/19/17 08:05 04/17/17 05:00 CT of the head was done 04/19/17: no acute intracraneall hemorrhages, mild right periorbital/spraorbital and frontotemporal soft tissue swelling, ishcemic chngges in the periventricular white matter changes, some atrophic changes. Temp Pulse Resp BP Pulse Ox 98.7 F 100 H 20 117/80 99 04/21/17 09:05 04/21/17 09:05 04/21/17 09:05 04/21/17 09:05 04/17/17 05:00 DSM 5 Symptoms Update: Patient is a 46 year old male with history of Schizoaffective Disorder, Obsessive Compulsive Disorder, Severe alcohol use this order, prior admissions ( most recently 10/2015 at [facility] [place] multiple suicide attempts, poor follow up with after care recommendations and medications who presented to the emergency department after becoming agitated and aggressive at [facility]. as per RN report pt is more manageable in the unit, pt was c/o hearing voices, pt is off 1:1. pt was seen at the treatment team meeting, pt is still psychotic, disorganized , delusional perception, for example: "I have two biological fathers, one is mayor Godwin and another is Quique Crowley, Manisha Javier is till monitoring me, she used to be my neighbour, I do not know what is her problem... " pt has no insight into his mental illness, but when was asked why he decided to sign consent for treatment, pt said "I want to please my mom", despite that fact pt is compliant with meds, pt needs assistance with shower, poor hygiene. there are some positive changes with pt, pt's speech is less pressured, but still overproductive, pt is not having visual hallucinations, more manageable in the unit. pt tolerated meds well, no side effects observed or observed AIMS 0, no EPS. Impression: Schizoaffective disorder, bipolar type OCD alcohol use disorder Medication Change: Yes (zyperexa increased) Medical Record Reviewed: Yes Consults ordered or reviewed: Medical consult and f/u appreciated Mental Status Examination - Cognitive Function Orientation: Person Memory: Impaired Attention: Poor Concentration: Poor Association: Loose Fund of Knowledge: WNL - Mood Mood: Other (Irritable) - Affect Affect: Constricted - Speech Speech: Pressured - Formal Thought Process Formal Thought Process: Hallucinations, Delusions, Paranoia, Loosening of associations, Circumstantial - Suicidal Ideation Suicidal Ideation: No - Homicidal Ideation Homicidal Ideation: No Goal/Treatment Plan - Goal/Treatment Plan Need for Continued Stay: Remain at risks for inpatient hospitalization, Severe depression anxiety, Discharge may exacerbated symptoms, Severe functional impairment Progress Toward Problem(s) and Goals/Treatment Plan: milieu, structure, supportive therapy Zyprexa 5 mg am and 10mg hs for psychotic symptoms depakote 500mg po bid for mood stabilization ativan 2mg po tid, with the plan to taper it down, today will be not decreased, pt was tachycardic 100BPM When necessary medications manager social services evaluation We'll monitor closely multivitamins, thiamine, folic acid Ambien at the nighttime for insomnia CT of the head was done pt is off 1:1. medical f/u appreciated ativan decreased Estimated Date of D/C: 04/28/17 (we will monitor closely)
[2017-04-22] MEDS: Divalproex 500 mg DR(BID formulation) PO SCH ×2 (08:58→15:59)
[2017-04-22] MEDS: Multivitamin With Minerals Tab PO SCH (08:59)
--- NOTE | 2017-04-22 09:24 | PCM.PYCHPN ---
Psychiatric Progress Note - Psychiatric Progress Note Patient seen today, length of contact: 25 minutes Patient Chief Complaint: "okay" Problems Identified/Issues Discussed: I reviewed floor notes and met with patient at bedside. Patient is still noticeably unkempt. He is not oriented to month and only superficially oriented to circumstances. He can provide the proper year. Patient denies depression or any new concerns. Feels "okay" and reports his sleep as "okay". He's not completely engaged with my questioning and appears distracted and internally preoccupied.. Regarding hallucinations patient responds "not really". I agree with the floor reports and notes that indicate that patient is disorganized and delusional. His thought process is scattered throughout the course of our conversation. Nonetheless he does not appear to be actively responding to internal stimuli. Patient denies having any side effects from his medications and denies any current discomfort or pain. Thus far he has been in fair control on the unit overnight. His insight and judgment remain impaired. . Diagnostic Results: Schizoaffective disorder, bipolar type OCD alcohol use disorder Medication Change: No ( ) Medical Record Reviewed: Yes (reports, labs, notes, vitals) Mental Status Examination - Cognitive Function Orientation: Person Memory: Impaired Attention: Poor Concentration: Poor Association: Loose Fund of Knowledge: WNL - Mood Mood: Other ("okay") - Affect Affect: Constricted - Speech Speech: Pressured - Formal Thought Process Formal Thought Process: Hallucinations (denies), Delusions, Paranoia, Loosening of associations, Circumstantial - Suicidal Ideation Suicidal Ideation: No - Homicidal Ideation Homicidal Ideation: No Goal/Treatment Plan - Goal/Treatment Plan Need for Continued Stay: Remain at risks for inpatient hospitalization, Severe depression anxiety, Discharge may exacerbated symptoms, Severe functional impairment Progress Toward Problem(s) and Goals/Treatment Plan: * grp, milieu and supportive tx * Taper Ativan as vitals tolerate * No new weekend labs * Vitals reviewed and noted below: Selected Entries 04/21/17 04/21/17 09:05 15:35 Temperature 98.7 F Pulse Rate 100 H 69 Respiratory 20 Rate Blood Pressure 117/80 111/77 Estimated Date of D/C: 04/28/17 (we will monitor closely)
--- NOTE | 2017-04-23 08:43 | PCM.PYCHPN ---
Psychiatric Progress Note - Psychiatric Progress Note Patient seen today, length of contact: 25 minutes Patient Chief Complaint: "okay" Problems Identified/Issues Discussed: I reviewed recent notes and met with patient at bedside. Patient is still noticeably unkempt and his exposed buttocks do not appear to concern him during our interview. He is not oriented to month and he is only superficially oriented to circumstances. Patient believes it is March 18, 2017. Today patient reports depression however denies wanting to or having suicidal thoughts. Denies issues with sleep. Patient is still not completely engaged with my questioning and appears distracted and internally preoccupied. Patient denies hallucinations. I agree with the floor reports and notes that indicate patient is disorganized and delusional. He does not appear to be reliable with his responses and thought process is scattered throughout the course of our conversation. Nonetheless he does not appear to be actively responding to internal stimuli. Patient denies having any side effects from his medications and denies any current discomfort or pain. Thus far he has been in fair control on the unit overnight. His insight and judgment remain impaired. There were no major behavioral issues over the weekend. Diagnostic Results: Schizoaffective disorder, bipolar type OCD alcohol use disorder Medication Change: Yes (ativan taper) Medical Record Reviewed: Yes (reports, labs, notes, vitals) Mental Status Examination - Cognitive Function Orientation: Person Memory: Impaired Attention: Poor Concentration: Poor Association: Loose Fund of Knowledge: WNL - Mood Mood: Depressed, Other ("okay") - Affect Affect: Constricted - Speech Speech: Pressured - Formal Thought Process Formal Thought Process: Hallucinations (denies), Delusions, Paranoia, Loosening of associations, Circumstantial - Suicidal Ideation Suicidal Ideation: No - Homicidal Ideation Homicidal Ideation: No Goal/Treatment Plan - Goal/Treatment Plan Need for Continued Stay: Remain at risks for inpatient hospitalization, Severe depression anxiety, Discharge may exacerbated symptoms, Severe functional impairment Progress Toward Problem(s) and Goals/Treatment Plan: * grp, milieu and supportive tx * Tapered Ativan 2 mg q8 to 2 mg q12 on 04/23/17 * No new weekend labs * Vitals reviewed and noted below: Selected Entries 04/23/17 07:57 Temperature 97.9 F Pulse Rate 75 Respiratory 20 Rate Blood Pressure 111/64 Estimated Date of D/C: 04/28/17 (we will monitor closely)
[2017-04-23] MEDS: Multivitamin With Minerals Tab PO SCH (09:10)
[2017-04-23] MEDS: Divalproex 500 mg DR(BID formulation) PO SCH ×2 (09:10→17:36)
[2017-04-24 05:47] VITALS: O2SAT 98
[2017-04-24] MEDS: Multivitamin With Minerals Tab PO SCH (08:52)
[2017-04-24] MEDS: Divalproex 500 mg DR(BID formulation) PO SCH ×2 (08:52→17:45)
--- NOTE | 2017-04-24 16:19 | PCM.PYCHPN ---
Psychiatric Progress Note - Psychiatric Progress Note Patient seen today, length of contact: 30 minutes Patient Chief Complaint: "I'm kind of groggy today, God bless you" Problems Identified/Issues Discussed: Suicide/ homicide prevention, past psychiatric h/o, current psychiatric symptoms , medical problems, risk/benefits and alternatives of medications, medications compliance, coping strategies, substance abuse h/o, relapse prevention, importance of follow up with psychiatrist and therapist, discharge plan. Medical Problems: HTN, transaminitis, leukopenia Diagnostic Results: 04/18/17 07:35 04/18/17 07:35 Lab Results 04/18/17 08:00: TSH 3rd Generation 3.59 04/18/17 07:35: Sodium 139, Potassium 3.7, Chloride 105, Carbon Dioxide 27, Anion Gap 11, BUN 12, Creatinine 0.8, Est GFR ( Amer) > 60, Est GFR (Non- Af Amer) > 60, Random Glucose 92, Calcium 8.8, Total Bilirubin 1.7 H, AST 82 H, ALT 99 H, Alkaline Phosphatase 109, Total Protein 7.0, Albumin 3.9, Globulin 3.1 , Albumin/Globulin Ratio 1.3 04/18/17 07:35: WBC 3.4 L, RBC 4.20, Hgb 13.6 L, Hct 38.0 L, MCV 90.5, MCH 32.4 , MCHC 35.8, RDW 12.5, Plt Count 118 L, MPV 9.8, Gran % 66.3, Lymph % (Auto) 22.5, [place] % (Auto) 8.5 H, Eos % (Auto) 1.8, Baso % (Auto) 0.9, Gran # 2.27, Lymph # 0.8 L, [place] # 0.3, Eos # 0.1, Baso # 0.03 04/17/17 07:30: RPR Nonreactive 04/17/17 07:30: TSH 3rd Generation 4.45 04/17/17 07:30: Fasting Glucose 100, Triglycerides 150, Cholesterol 159, LDL Cholesterol Direct 115, HDL Cholesterol 30 04/16/17 23:24: Urine Opiates Screen Negative, Urine Methadone Screen Negative, Ur Barbiturates Screen Negative, Ur Phencyclidine Scrn Negative, Ur Amphetamines Screen Negative, U Benzodiazepines Scrn Negative, U Oth Cocaine Metabols Negative, U Cannabinoids Screen Negative 04/16/17 23:00: Urine Color Yellow, Urine Appearance Clear, Urine pH 6.0, Ur Specific [place] 1.010, Urine Protein Trace H, Urine Glucose (UA) Negative, Urine Ketones Negative, Urine Blood Moderate H, Urine Nitrate Negative, Urine Bilirubin Negative, Urine Urobilinogen 2.0 H, Ur Leukocyte Esterase Negative, Urine RBC 5 - 10, Urine WBC 1 - 3, Ur Epithelial Cells 1 - 3 04/16/17 20:30: Alcohol, Quantitative < 10 04/16/17 20:30: Salicylates < 1 L, Acetaminophen < 10.0 L 04/16/17 20:30: Sodium 136, Potassium 3.3 L, Chloride 103, Carbon Dioxide 23, Anion Gap 13, BUN 12, Creatinine 0.8, Est GFR ( Amer) > 60, Est GFR (Non- Af Amer) > 60, Random Glucose 138 H, Calcium 8.4, Total Bilirubin 1.8 H, AST 73 H, ALT 110 H, Alkaline Phosphatase 117, Total Protein 7.2, Albumin 4.1, Globulin 3.2, Albumin/Globulin Ratio 1.3 04/16/17 20:30: WBC 2.9 L* D, RBC 4.33, Hgb 14.0, Hct 38.5 L, MCV 88.9, MCH 32.3 , MCHC 36.4, RDW 12.4, Plt Count 133, MPV 10.2, Gran % 74.4 H, Lymph % (Auto) 14.9 L, [place] % (Auto) 8.7 H, Eos % (Auto) 1.7, Baso % (Auto) 0.3, Gran # 2.15, Lymph # 0.4 L, [place] # 0.3, Eos # 0.1, Baso # 0.01 Vital Signs Temp Pulse Resp BP Pulse Ox 04/18/17 08:13 98.3 F 123 H 18 133/88 04/17/17 16:42 72 130/89 04/17/17 05:26 97.4 F L 61 20 124/94 H 04/17/17 05:00 86 16 110/72 99 04/17/17 02:59 98.1 F 85 16 112/73 98 04/17/17 02:19 97.9 F 87 16 04/16/17 23:30 98.2 F 81 16 114/76 99 04/16/17 20:35 94 H 16 114/82 95 04/16/17 19:43 20 04/16/17 19:24 98.9 F 104 H 18 159/100 H 96 Temp Pulse Resp BP Pulse Ox 98.3 F 96 H 16 103/74 99 04/19/17 08:05 04/19/17 08:05 04/19/17 08:05 04/19/17 08:05 04/17/17 05:00 CT of the head was done 04/19/17: no acute intracraneall hemorrhages, mild right periorbital/spraorbital and frontotemporal soft tissue swelling, ishcemic chngges in the periventricular white matter changes, some atrophic changes. Temp Pulse Resp BP Pulse Ox 98.7 F 100 H 20 117/80 99 04/21/17 09:05 04/21/17 09:05 04/21/17 09:05 04/21/17 09:05 04/17/17 05:00 Temp Pulse Resp BP Pulse Ox 97.2 F L 78 18 106/72 98 04/24/17 08:00 04/24/17 08:00 04/24/17 08:00 04/24/17 07:43 04/23/17 20:00 DSM 5 Symptoms Update: Patient is a 46 year old male with history of Schizoaffective Disorder, Obsessive Compulsive Disorder, Severe alcohol use this order, prior [place] ( [place] [facility] [place] multiple suicide attempts, poor follow up with after care recommendations and medications who presented to the emergency department after becoming agitated and aggressive at [facility]. as per RN report pt needed to have assistance to take shower, as well as washing his clothes, still psychotic, disorganized, but much calmer to compare with the last week. pt was seen in his room "I feel kind of groggy today, God bless you". pt is still disorganized in his thoughts, delusional, paranoid. there are some positive changes with pt, pt's speech is less pressured, but still overproductive, pt is not having visual hallucinations, more manageable in the unit. pt tolerated meds well, no side effects observed or observed AIMS 0, no EPS. Impression: Schizoaffective disorder, bipolar type OCD alcohol use disorder Medication Change: Yes (ativan taper) Medical Record Reviewed: Yes (reports, labs, notes, vitals) Consults ordered or reviewed: Medical consult and f/u appreciated Mental Status Examination - Cognitive Function Orientation: Person Memory: Impaired Attention: Poor Concentration: Poor Association: Loose Fund of Knowledge: WNL - Mood Mood: Depressed, Other ("okay") - Affect Affect: Constricted - Speech Speech: Pressured - Formal Thought Process Formal Thought Process: Hallucinations (denies), Delusions, Paranoia, Loosening of associations, Circumstantial - Suicidal Ideation Suicidal Ideation: No - Homicidal Ideation Homicidal Ideation: No Goal/Treatment Plan - Goal/Treatment Plan Need for Continued Stay: Remain at risks for inpatient hospitalization, Severe depression anxiety, Discharge may exacerbated symptoms, Severe functional impairment Progress Toward Problem(s) and Goals/Treatment Plan: milieu, structure, supportive therapy Zyprexa 5 mg am and 10mg hs for psychotic symptoms depakote 500mg po bid for mood stabilization ativan 1mg po tid, vitals are wnl When necessary medications social services aide evaluation We'll monitor closely multivitamins, thiamine, folic acid Ambien at the nighttime for insomnia CT of the head was done pt is off 1:1. medical f/u appreciated ativan decreased Estimated Date of D/C: 04/28/17 (we will monitor closely)
[2017-04-25] MEDS: Multivitamin With Minerals Tab PO SCH (09:02)
[2017-04-25] MEDS: Divalproex 500 mg DR(BID formulation) PO SCH ×2 (09:04→16:37)
--- NOTE | 2017-04-25 15:36 | PCM.PYCHPN ---
Psychiatric Progress Note - Psychiatric Progress Note Patient seen today, length of contact: 30 minutes Patient Chief Complaint: "I'm kind of okay" Problems Identified/Issues Discussed: Suicide/ homicide prevention, past psychiatric h/o, current psychiatric symptoms , medical problems, risk/benefits and alternatives of medications, medications compliance, coping strategies, substance abuse h/o, relapse prevention, importance of follow up with psychiatrist and therapist, discharge plan. Medical Problems: HTN, transaminitis, leukopenia Diagnostic Results: 04/18/17 07:35 04/18/17 07:35 Lab Results 04/18/17 08:00: TSH 3rd Generation 3.59 04/18/17 07:35: Sodium 139, Potassium 3.7, Chloride 105, Carbon Dioxide 27, Anion Gap 11, BUN 12, Creatinine 0.8, Est GFR ( Amer) > 60, Est GFR (Non- Af Amer) > 60, Random Glucose 92, Calcium 8.8, Total Bilirubin 1.7 H, AST 82 H, ALT 99 H, Alkaline Phosphatase 109, Total Protein 7.0, Albumin 3.9, Globulin 3.1 , Albumin/Globulin Ratio 1.3 04/18/17 07:35: WBC 3.4 L, RBC 4.20, Hgb 13.6 L, Hct 38.0 L, MCV 90.5, MCH 32.4 , MCHC 35.8, RDW 12.5, Plt Count 118 L, MPV 9.8, Gran % 66.3, Lymph % (Auto) 22.5, [place] % (Auto) 8.5 H, Eos % (Auto) 1.8, Baso % (Auto) 0.9, Gran # 2.27, Lymph # 0.8 L, [place] # 0.3, Eos # 0.1, Baso # 0.03 04/17/17 07:30: RPR Nonreactive 04/17/17 07:30: TSH 3rd Generation 4.45 04/17/17 07:30: Fasting Glucose 100, Triglycerides 150, Cholesterol 159, LDL Cholesterol Direct 115, HDL Cholesterol 30 04/16/17 23:24: Urine Opiates Screen Negative, Urine Methadone Screen Negative, Ur Barbiturates Screen Negative, Ur Phencyclidine Scrn Negative, Ur Amphetamines Screen Negative, U Benzodiazepines Scrn Negative, U Oth Cocaine Metabols Negative, U Cannabinoids Screen Negative 04/16/17 23:00: Urine Color Yellow, Urine Appearance Clear, Urine pH 6.0, Ur Specific [place] 1.010, Urine Protein Trace H, Urine Glucose (UA) Negative, Urine Ketones Negative, Urine Blood Moderate H, Urine Nitrate Negative, Urine Bilirubin Negative, Urine Urobilinogen 2.0 H, Ur Leukocyte Esterase Negative, Urine RBC 5 - 10, Urine WBC 1 - 3, Ur Epithelial Cells 1 - 3 04/16/17 20:30: Alcohol, Quantitative < 10 04/16/17 20:30: Salicylates < 1 L, Acetaminophen < 10.0 L 04/16/17 20:30: Sodium 136, Potassium 3.3 L, Chloride 103, Carbon Dioxide 23, Anion Gap 13, BUN 12, Creatinine 0.8, Est GFR ( Amer) > 60, Est GFR (Non- Af Amer) > 60, Random Glucose 138 H, Calcium 8.4, Total Bilirubin 1.8 H, AST 73 H, ALT 110 H, Alkaline Phosphatase 117, Total Protein 7.2, Albumin 4.1, Globulin 3.2, Albumin/Globulin Ratio 1.3 04/16/17 20:30: WBC 2.9 L* D, RBC 4.33, Hgb 14.0, Hct 38.5 L, MCV 88.9, MCH 32.3 , MCHC 36.4, RDW 12.4, Plt Count 133, MPV 10.2, Gran % 74.4 H, Lymph % (Auto) 14.9 L, [place] % (Auto) 8.7 H, Eos % (Auto) 1.7, Baso % (Auto) 0.3, Gran # 2.15, Lymph # 0.4 L, [place] # 0.3, Eos # 0.1, Baso # 0.01 Vital Signs Temp Pulse Resp BP Pulse Ox 04/18/17 08:13 98.3 F 123 H 18 133/88 04/17/17 16:42 72 130/89 04/17/17 05:26 97.4 F L 61 20 124/94 H 04/17/17 05:00 86 16 110/72 99 04/17/17 02:59 98.1 F 85 16 112/73 98 04/17/17 02:19 97.9 F 87 16 04/16/17 23:30 98.2 F 81 16 114/76 99 04/16/17 20:35 94 H 16 114/82 95 04/16/17 19:43 20 04/16/17 19:24 98.9 F 104 H 18 159/100 H 96 Temp Pulse Resp BP Pulse Ox 98.3 F 96 H 16 103/74 99 04/19/17 08:05 04/19/17 08:05 04/19/17 08:05 04/19/17 08:05 04/17/17 05:00 CT of the head was done 04/19/17: no acute intracraneall hemorrhages, mild right periorbital/spraorbital and frontotemporal soft tissue swelling, ishcemic chngges in the periventricular white matter changes, some atrophic changes. Temp Pulse Resp BP Pulse Ox 98.7 F 100 H 20 117/80 99 04/21/17 09:05 04/21/17 09:05 04/21/17 09:05 04/21/17 09:05 04/17/17 05:00 Temp Pulse Resp BP Pulse Ox 97.2 F L 78 18 106/72 98 04/24/17 08:00 04/24/17 08:00 04/24/17 08:00 04/24/17 07:43 04/23/17 20:00 DSM 5 Symptoms Update: Patient is a 46 year old male with history of Schizoaffective Disorder, Obsessive Compulsive Disorder, Severe alcohol use this order, prior admissions ( most recently 10/2015 at [facility] [place] multiple suicide attempts, poor follow up with after care recommendations and medications who presented to the emergency department after becoming agitated and aggressive at [facility] [place]. as per RN report pt needed to have assistance to take shower, as well as washing his clothes, still psychotic, disorganized, but much calmer to compare with the last week. pt was seen at the hallway, patient still delusional, disorganized, but some improvement with patient's presentation, patient's speech is less pressured, patient is more organized, no behavioral incident pt tolerated meds well, no side effects observed or observed AIMS 0, no EPS. Impression: Schizoaffective disorder, bipolar type OCD alcohol use disorder Medication Change: Yes (Zyprexa increased) Medical Record Reviewed: Yes (reports, labs, notes, vitals) Consults ordered or reviewed: Medical consult and f/u appreciated Mental Status Examination - Cognitive Function Orientation: Person Memory: Impaired Attention: Poor Concentration: Poor Association: Loose Fund of Knowledge: WNL - Mood Mood: Depressed, Other ("okay") - Affect Affect: Constricted - Speech Speech: Pressured - Formal Thought Process Formal Thought Process: Hallucinations (denies), Delusions, Paranoia, Loosening of associations, Circumstantial - Suicidal Ideation Suicidal Ideation: No - Homicidal Ideation Homicidal Ideation: No Goal/Treatment Plan - Goal/Treatment Plan Need for Continued Stay: Remain at risks for inpatient hospitalization, Severe depression anxiety, Discharge may exacerbated symptoms, Severe functional impairment Progress Toward Problem(s) and Goals/Treatment Plan: milieu, structure, supportive therapy Zyprexa 7.5 mg am and 10mg hs for psychotic symptoms depakote 500mg po bid for mood stabilization ativan 1mg po tid, vitals are wnl When necessary medications social service technician evaluation We'll monitor closely multivitamins, thiamine, folic acid Ambien at the nighttime for insomnia CT of the head was done pt is off 1:1. medical f/u appreciated ativan decreased Estimated Date of D/C: 04/28/17 (we will monitor closely)
[2017-04-26] MEDS: Divalproex 500 mg DR(BID formulation) PO SCH ×2 (09:27→21:18)
[2017-04-26] MEDS: Multivitamin With Minerals Tab PO SCH (09:29)
--- NOTE | 2017-04-26 16:53 | PCM.PYCHPN ---
Psychiatric Progress Note - Psychiatric Progress Note Patient seen today, length of contact: 30 minutes Patient Chief Complaint: "I am an end product of an affair of my God mother Stephenie and Mayor Tato... " Problems Identified/Issues Discussed: Suicide/ homicide prevention, past psychiatric h/o, current psychiatric symptoms , medical problems, risk/benefits and alternatives of medications, medications compliance, coping strategies, substance abuse h/o, relapse prevention, importance of follow up with psychiatrist and therapist, discharge plan. Medical Problems: HTN, transaminitis, leukopenia Diagnostic Results: 04/18/17 07:35 04/18/17 07:35 Lab Results 04/18/17 08:00: TSH 3rd Generation 3.59 04/18/17 07:35: Sodium 139, Potassium 3.7, Chloride 105, Carbon Dioxide 27, Anion Gap 11, BUN 12, Creatinine 0.8, Est GFR ( Amer) > 60, Est GFR (Non- Af Amer) > 60, Random Glucose 92, Calcium 8.8, Total Bilirubin 1.7 H, AST 82 H, ALT 99 H, Alkaline Phosphatase 109, Total Protein 7.0, Albumin 3.9, Globulin 3.1 , Albumin/Globulin Ratio 1.3 04/18/17 07:35: WBC 3.4 L, RBC 4.20, Hgb 13.6 L, Hct 38.0 L, MCV 90.5, MCH 32.4 , MCHC 35.8, RDW 12.5, Plt Count 118 L, MPV 9.8, Gran % 66.3, Lymph % (Auto) 22.5, [place] % (Auto) 8.5 H, Eos % (Auto) 1.8, Baso % (Auto) 0.9, Gran # 2.27, Lymph # 0.8 L, [place] # 0.3, Eos # 0.1, Baso # 0.03 04/17/17 07:30: RPR Nonreactive 04/17/17 07:30: TSH 3rd Generation 4.45 04/17/17 07:30: Fasting Glucose 100, Triglycerides 150, Cholesterol 159, LDL Cholesterol Direct 115, HDL Cholesterol 30 04/16/17 23:24: Urine Opiates Screen Negative, Urine Methadone Screen Negative, Ur Barbiturates Screen Negative, Ur Phencyclidine Scrn Negative, Ur Amphetamines Screen Negative, U Benzodiazepines Scrn Negative, U Oth Cocaine Metabols Negative, U Cannabinoids Screen Negative 04/16/17 23:00: Urine Color Yellow, Urine Appearance Clear, Urine pH 6.0, Ur Specific [place] 1.010, Urine Protein Trace H, Urine Glucose (UA) Negative, Urine Ketones Negative, Urine Blood Moderate H, Urine Nitrate Negative, Urine Bilirubin Negative, Urine Urobilinogen 2.0 H, Ur Leukocyte Esterase Negative, Urine RBC 5 - 10, Urine WBC 1 - 3, Ur Epithelial Cells 1 - 3 04/16/17 20:30: Alcohol, Quantitative < 10 04/16/17 20:30: Salicylates < 1 L, Acetaminophen < 10.0 L 04/16/17 20:30: Sodium 136, Potassium 3.3 L, Chloride 103, Carbon Dioxide 23, Anion Gap 13, BUN 12, Creatinine 0.8, Est GFR ( Amer) > 60, Est GFR (Non- Af Amer) > 60, Random Glucose 138 H, Calcium 8.4, Total Bilirubin 1.8 H, AST 73 H, ALT 110 H, Alkaline Phosphatase 117, Total Protein 7.2, Albumin 4.1, Globulin 3.2, Albumin/Globulin Ratio 1.3 04/16/17 20:30: WBC 2.9 L* D, RBC 4.33, Hgb 14.0, Hct 38.5 L, MCV 88.9, MCH 32.3 , MCHC 36.4, RDW 12.4, Plt Count 133, MPV 10.2, Gran % 74.4 H, Lymph % (Auto) 14.9 L, [place] % (Auto) 8.7 H, Eos % (Auto) 1.7, Baso % (Auto) 0.3, Gran # 2.15, Lymph # 0.4 L, [place] # 0.3, Eos # 0.1, Baso # 0.01 Vital Signs Temp Pulse Resp BP Pulse Ox 04/18/17 08:13 98.3 F 123 H 18 133/88 04/17/17 16:42 72 130/89 04/17/17 05:26 97.4 F L 61 20 124/94 H 04/17/17 05:00 86 16 110/72 99 04/17/17 02:59 98.1 F 85 16 112/73 98 04/17/17 02:19 97.9 F 87 16 04/16/17 23:30 98.2 F 81 16 114/76 99 04/16/17 20:35 94 H 16 114/82 95 04/16/17 19:43 20 04/16/17 19:24 98.9 F 104 H 18 159/100 H 96 Temp Pulse Resp BP Pulse Ox 98.3 F 96 H 16 103/74 99 04/19/17 08:05 04/19/17 08:05 04/19/17 08:05 04/19/17 08:05 04/17/17 05:00 CT of the head was done 04/19/17: no acute intracraneall hemorrhages, mild right periorbital/spraorbital and frontotemporal soft tissue swelling, ishcemic chngges in the periventricular white matter changes, some atrophic changes. Temp Pulse Resp BP Pulse Ox 98.7 F 100 H 20 117/80 99 04/21/17 09:05 04/21/17 09:05 04/21/17 09:05 04/21/17 09:05 04/17/17 05:00 Temp Pulse Resp BP Pulse Ox 97.2 F L 78 18 106/72 98 04/24/17 08:00 04/24/17 08:00 04/24/17 08:00 04/24/17 07:43 04/23/17 20:00 DSM 5 Symptoms Update: Patient is a 46 year old male with history of Schizoaffective Disorder, Obsessive Compulsive Disorder, Severe alcohol use this order, [place] ( [place] [facility] [place] multiple suicide attempts, poor follow up with after care recommendations and medications who presented to the emergency department after becoming agitated and aggressive at [facility]. pt is still psychotic, disorganized, but much calmer to compare with the last week, pt still has fixed delusions about "I am a gypsy marely", pt also feels that his mother is not his real mother and his God mother and mayor Tres are his real parents. pt c/o mind racing and and "feeling groggy". no behavioral incident pt tolerated meds well, no side effects observed or observed AIMS 0, no EPS. Impression: Schizoaffective disorder, bipolar type OCD alcohol use disorder Medication Change: Yes (Depakote increased, Ativan decreased) Medical Record Reviewed: Yes (reports, labs, notes, vitals) Consults ordered or reviewed: Medical consult and f/u appreciated Mental Status Examination - Cognitive Function Orientation: Person Memory: Impaired Attention: Poor (some improvement) Concentration: Poor Association: Loose Fund of Knowledge: WNL - Mood Mood: Depressed, Other ("okay") - Affect Affect: Constricted - Speech Speech: Pressured (overproductive) - Formal Thought Process Formal Thought Process: Hallucinations (denies), Delusions, Paranoia, Loosening of associations, Circumstantial - Suicidal Ideation Suicidal Ideation: No - Homicidal Ideation Homicidal Ideation: No Goal/Treatment Plan - Goal/Treatment Plan Need for Continued Stay: Remain at risks for inpatient hospitalization, Severe depression anxiety, Discharge may exacerbated symptoms, Severe functional impairment Progress Toward Problem(s) and Goals/Treatment Plan: milieu, structure, supportive therapy Zyprexa 7.5 mg am and 10mg hs for psychotic symptoms depakote 500mg po at the morning time in 1000 at the nighttime for mood stabilization ativan 0.5 mg twice a day vitals are wnl When necessary medications social work administrator evaluation We'll monitor closely multivitamins, thiamine, folic acid Ambien at the nighttime for insomnia CT of the head was done within normal limits pt is off 1:1. medical f/u appreciated ativan decreased Estimated Date of D/C: 04/28/17 (we will monitor closely)
[2017-04-27] MEDS: Multivitamin With Minerals Tab PO SCH (09:02)
[2017-04-27] MEDS: Divalproex 500 mg DR(BID formulation) PO SCH ×2 (09:02→21:58)
--- NOTE | 2017-04-27 14:04 | PCM.PYCHPN ---
Psychiatric Progress Note - Psychiatric Progress Note Patient seen today, length of contact: 30 minutes Patient Chief Complaint: "I am an end product of an affair of my God mother Stephenie and Mayor Tato... " Problems Identified/Issues Discussed: Suicide/ homicide prevention, past psychiatric h/o, current psychiatric symptoms , medical problems, risk/benefits and alternatives of medications, medications compliance, coping strategies, substance abuse h/o, relapse prevention, importance of follow up with psychiatrist and therapist, discharge plan. Medical Problems: HTN, transaminitis, leukopenia Diagnostic Results: 04/18/17 07:35 04/18/17 07:35 Lab Results 04/18/17 08:00: TSH 3rd Generation 3.59 04/18/17 07:35: Sodium 139, Potassium 3.7, Chloride 105, Carbon Dioxide 27, Anion Gap 11, BUN 12, Creatinine 0.8, Est GFR ( Amer) > 60, Est GFR (Non- Af Amer) > 60, Random Glucose 92, Calcium 8.8, Total Bilirubin 1.7 H, AST 82 H, ALT 99 H, Alkaline Phosphatase 109, Total Protein 7.0, Albumin 3.9, Globulin 3.1 , Albumin/Globulin Ratio 1.3 04/18/17 07:35: WBC 3.4 L, RBC 4.20, Hgb 13.6 L, Hct 38.0 L, MCV 90.5, MCH 32.4 , MCHC 35.8, RDW 12.5, Plt Count 118 L, MPV 9.8, Gran % 66.3, Lymph % (Auto) 22.5, [place] % (Auto) 8.5 H, Eos % (Auto) 1.8, Baso % (Auto) 0.9, Gran # 2.27, Lymph # 0.8 L, [place] # 0.3, Eos # 0.1, Baso # 0.03 04/17/17 07:30: RPR Nonreactive 04/17/17 07:30: TSH 3rd Generation 4.45 04/17/17 07:30: Fasting Glucose 100, Triglycerides 150, Cholesterol 159, LDL Cholesterol Direct 115, HDL Cholesterol 30 04/16/17 23:24: Urine Opiates Screen Negative, Urine Methadone Screen Negative, Ur Barbiturates Screen Negative, Ur Phencyclidine Scrn Negative, Ur Amphetamines Screen Negative, U Benzodiazepines Scrn Negative, U Oth Cocaine Metabols Negative, U Cannabinoids Screen Negative 04/16/17 23:00: Urine Color Yellow, Urine Appearance Clear, Urine pH 6.0, Ur Specific [place] 1.010, Urine Protein Trace H, Urine Glucose (UA) Negative, Urine Ketones Negative, Urine Blood Moderate H, Urine Nitrate Negative, Urine Bilirubin Negative, Urine Urobilinogen 2.0 H, Ur Leukocyte Esterase Negative, Urine RBC 5 - 10, Urine WBC 1 - 3, Ur Epithelial Cells 1 - 3 04/16/17 20:30: Alcohol, Quantitative < 10 04/16/17 20:30: Salicylates < 1 L, Acetaminophen < 10.0 L 04/16/17 20:30: Sodium 136, Potassium 3.3 L, Chloride 103, Carbon Dioxide 23, Anion Gap 13, BUN 12, Creatinine 0.8, Est GFR ( Amer) > 60, Est GFR (Non- Af Amer) > 60, Random Glucose 138 H, Calcium 8.4, Total Bilirubin 1.8 H, AST 73 H, ALT 110 H, Alkaline Phosphatase 117, Total Protein 7.2, Albumin 4.1, Globulin 3.2, Albumin/Globulin Ratio 1.3 04/16/17 20:30: WBC 2.9 L* D, RBC 4.33, Hgb 14.0, Hct 38.5 L, MCV 88.9, MCH 32.3 , MCHC 36.4, RDW 12.4, Plt Count 133, MPV 10.2, Gran % 74.4 H, Lymph % (Auto) 14.9 L, [place] % (Auto) 8.7 H, Eos % (Auto) 1.7, Baso % (Auto) 0.3, Gran # 2.15, Lymph # 0.4 L, [place] # 0.3, Eos # 0.1, Baso # 0.01 Vital Signs Temp Pulse Resp BP Pulse Ox 04/18/17 08:13 98.3 F 123 H 18 133/88 04/17/17 16:42 72 130/89 04/17/17 05:26 97.4 F L 61 20 124/94 H 04/17/17 05:00 86 16 110/72 99 04/17/17 02:59 98.1 F 85 16 112/73 98 04/17/17 02:19 97.9 F 87 16 04/16/17 23:30 98.2 F 81 16 114/76 99 04/16/17 20:35 94 H 16 114/82 95 04/16/17 19:43 20 04/16/17 19:24 98.9 F 104 H 18 159/100 H 96 Temp Pulse Resp BP Pulse Ox 98.3 F 96 H 16 103/74 99 04/19/17 08:05 04/19/17 08:05 04/19/17 08:05 04/19/17 08:05 04/17/17 05:00 CT of the head was done 04/19/17: no acute intracraneall hemorrhages, mild right periorbital/spraorbital and frontotemporal soft tissue swelling, ishcemic chngges in the periventricular white matter changes, some atrophic changes. Temp Pulse Resp BP Pulse Ox 98.7 F 100 H 20 117/80 99 04/21/17 09:05 04/21/17 09:05 04/21/17 09:05 04/21/17 09:05 04/17/17 05:00 Temp Pulse Resp BP Pulse Ox 97.2 F L 78 18 106/72 98 04/24/17 08:00 04/24/17 08:00 04/24/17 08:00 04/24/17 07:43 04/23/17 20:00 Temp Pulse Resp BP Pulse Ox 97.5 F L 59 L 20 98/61 L 98 04/27/17 07:10 04/27/17 07:10 04/27/17 07:10 04/27/17 07:10 04/23/17 20:00 DSM 5 Symptoms Update: Patient is a 46 year old male with history of Schizoaffective Disorder, Obsessive Compulsive Disorder, Severe alcohol use this order, prior admissions ( most recently 10/2015 at [facility] [place] multiple suicide attempts, poor follow up with after care recommendations and medications who presented to the emergency department after becoming agitated and aggressive at [facility]. pt is still psychotic, disorganized, but much calmer to compare with the last week, pt still has fixed delusions about "I am a gypsy marely", pt also feels that his mother is not his real mother, refer her as "Felkerrya", his God mother and mayor Tres are his real parents. pt c/o mind racing and and "feeling groggy", will d/c ativan, ambien PRN. no behavioral incident pt tolerated meds well, no side effects observed or observed AIMS 0, no EPS. Impression: Schizoaffective disorder, bipolar type OCD alcohol use disorder Medication Change: Yes (ativan d/c, ambien prn) Medical Record Reviewed: Yes (reports, labs, notes, vitals) Consults ordered or reviewed: Medical consult and f/u appreciated Mental Status Examination - Cognitive Function Orientation: Person Memory: Impaired Attention: Poor (some improvement) Concentration: Poor Association: Loose Fund of Knowledge: WNL - Mood Mood: Depressed, Other ("okay") - Affect Affect: Constricted - Speech Speech: Pressured (overproductive) - Formal Thought Process Formal Thought Process: Hallucinations (denies), Delusions, Paranoia, Loosening of associations, Circumstantial - Suicidal Ideation Suicidal Ideation: No - Homicidal Ideation Homicidal Ideation: No Goal/Treatment Plan - Goal/Treatment Plan Need for Continued Stay: Remain at risks for inpatient hospitalization, Severe depression anxiety, Discharge may exacerbated symptoms, Severe functional impairment Progress Toward Problem(s) and Goals/Treatment Plan: milieu, structure, supportive therapy Zyprexa 7.5 mg am and 10mg hs for psychotic symptoms depakote 500mg po at the morning time in 1000 at the nighttime for mood stabilization ativan 0.5 mg twice a day prn When necessary medications social science instructor evaluation We'll monitor closely multivitamins, thiamine, folic acid Ambien at the nighttime for insomnia CT of the head was done within normal limits pt is off 1:1. medical f/u appreciated Estimated Date of D/C: 05/02/17 (we will monitor closely)
[2017-04-28] MEDS: Multivitamin With Minerals Tab PO SCH (08:51)
[2017-04-28] MEDS: Divalproex 500 mg DR(BID formulation) PO SCH (08:54)
--- NOTE | 2017-04-28 15:21 | PCM.PYCHPN ---
Psychiatric Progress Note - Psychiatric Progress Note Patient seen today, length of contact: 30 minutes Patient Chief Complaint: "I am fine, when I could go home?" Problems Identified/Issues Discussed: Suicide/ homicide prevention, past psychiatric h/o, current psychiatric symptoms , medical problems, risk/benefits and alternatives of medications, medications compliance, coping strategies, substance abuse h/o, relapse prevention, importance of follow up with psychiatrist and therapist, discharge plan. Medical Problems: HTN, transaminitis, leukopenia Diagnostic Results: 04/18/17 07:35 04/18/17 07:35 Lab Results 04/18/17 08:00: TSH 3rd Generation 3.59 04/18/17 07:35: Sodium 139, Potassium 3.7, Chloride 105, Carbon Dioxide 27, Anion Gap 11, BUN 12, Creatinine 0.8, Est GFR ( Amer) > 60, Est GFR (Non- Af Amer) > 60, Random Glucose 92, Calcium 8.8, Total Bilirubin 1.7 H, AST 82 H, ALT 99 H, Alkaline Phosphatase 109, Total Protein 7.0, Albumin 3.9, Globulin 3.1 , Albumin/Globulin Ratio 1.3 04/18/17 07:35: WBC 3.4 L, RBC 4.20, Hgb 13.6 L, Hct 38.0 L, MCV 90.5, MCH 32.4 , MCHC 35.8, RDW 12.5, Plt Count 118 L, MPV 9.8, Gran % 66.3, Lymph % (Auto) 22.5, [place] % (Auto) 8.5 H, Eos % (Auto) 1.8, Baso % (Auto) 0.9, Gran # 2.27, Lymph # 0.8 L, [place] # 0.3, Eos # 0.1, Baso # 0.03 04/17/17 07:30: RPR Nonreactive 04/17/17 07:30: TSH 3rd Generation 4.45 04/17/17 07:30: Fasting Glucose 100, Triglycerides 150, Cholesterol 159, LDL Cholesterol Direct 115, HDL Cholesterol 30 04/16/17 23:24: Urine Opiates Screen Negative, Urine Methadone Screen Negative, Ur Barbiturates Screen Negative, Ur Phencyclidine Scrn Negative, Ur Amphetamines Screen Negative, U Benzodiazepines Scrn Negative, U Oth Cocaine Metabols Negative, U Cannabinoids Screen Negative 04/16/17 23:00: Urine Color Yellow, Urine Appearance Clear, Urine pH 6.0, Ur Specific [place] 1.010, Urine Protein Trace H, Urine Glucose (UA) Negative, Urine Ketones Negative, Urine Blood Moderate H, Urine Nitrate Negative, Urine Bilirubin Negative, Urine Urobilinogen 2.0 H, Ur Leukocyte Esterase Negative, Urine RBC 5 - 10, Urine WBC 1 - 3, Ur Epithelial Cells 1 - 3 04/16/17 20:30: Alcohol, Quantitative < 10 04/16/17 20:30: Salicylates < 1 L, Acetaminophen < 10.0 L 04/16/17 20:30: Sodium 136, Potassium 3.3 L, Chloride 103, Carbon Dioxide 23, Anion Gap 13, BUN 12, Creatinine 0.8, Est GFR ( Amer) > 60, Est GFR (Non- Af Amer) > 60, Random Glucose 138 H, Calcium 8.4, Total Bilirubin 1.8 H, AST 73 H, ALT 110 H, Alkaline Phosphatase 117, Total Protein 7.2, Albumin 4.1, Globulin 3.2, Albumin/Globulin Ratio 1.3 04/16/17 20:30: WBC 2.9 L* D, RBC 4.33, Hgb 14.0, Hct 38.5 L, MCV 88.9, MCH 32.3 , MCHC 36.4, RDW 12.4, Plt Count 133, MPV 10.2, Gran % 74.4 H, Lymph % (Auto) 14.9 L, [place] % (Auto) 8.7 H, Eos % (Auto) 1.7, Baso % (Auto) 0.3, Gran # 2.15, Lymph # 0.4 L, [place] # 0.3, Eos # 0.1, Baso # 0.01 Vital Signs Temp Pulse Resp BP Pulse Ox 04/18/17 08:13 98.3 F 123 H 18 133/88 04/17/17 16:42 72 130/89 04/17/17 05:26 97.4 F L 61 20 124/94 H 04/17/17 05:00 86 16 110/72 99 04/17/17 02:59 98.1 F 85 16 112/73 98 04/17/17 02:19 97.9 F 87 16 04/16/17 23:30 98.2 F 81 16 114/76 99 04/16/17 20:35 94 H 16 114/82 95 04/16/17 19:43 20 04/16/17 19:24 98.9 F 104 H 18 159/100 H 96 Temp Pulse Resp BP Pulse Ox 98.3 F 96 H 16 103/74 99 04/19/17 08:05 04/19/17 08:05 04/19/17 08:05 04/19/17 08:05 04/17/17 05:00 CT of the head was done 04/19/17: no acute intracraneall hemorrhages, mild right periorbital/spraorbital and frontotemporal soft tissue swelling, ishcemic chngges in the periventricular white matter changes, some atrophic changes. Temp Pulse Resp BP Pulse Ox 98.7 F 100 H 20 117/80 99 04/21/17 09:05 04/21/17 09:05 04/21/17 09:05 04/21/17 09:05 04/17/17 05:00 Temp Pulse Resp BP Pulse Ox 97.2 F L 78 18 106/72 98 04/24/17 08:00 04/24/17 08:00 04/24/17 08:00 04/24/17 07:43 04/23/17 20:00 Temp Pulse Resp BP Pulse Ox 97.5 F L 59 L 20 98/61 L 98 04/27/17 07:10 04/27/17 07:10 04/27/17 07:10 04/27/17 07:10 04/23/17 20:00 Temp Pulse Resp BP Pulse Ox 98.2 F 70 20 115/84 98 04/28/17 07:32 04/28/17 07:32 04/28/17 07:32 04/28/17 07:32 04/23/17 20:00 Laboratory Results - last 72 hr 04/27/17 07:35 Valproic Acid 76 DSM 5 Symptoms Update: Patient is a 46 year old male with history of Schizoaffective Disorder, Obsessive Compulsive Disorder, Severe alcohol use this order, prior admissions ( most recently 10/2015 at [facility] [place] multiple suicide attempts, poor follow up with after care recommendations and medications who presented to the emergency department after becoming agitated and aggressive at [facility]. pt is still psychotic, disorganized, but much calmer to compare with the last week, pt still has fixed delusions about "I am a gypsy marely", pt also feels that his mother is not his real mother, refer her as "Drew", his God mother and mayor Tres are his real parents. pt c/o mind racing and and "feeling groggy", pt is self isolating, disheveled. no behavioral incidents pt tolerated meds well, no side effects observed or observed AIMS 0, no EPS. Impression: Schizoaffective disorder, bipolar type OCD alcohol use disorder Medication Change: Yes (ER depakote) Medical Record Reviewed: Yes (reports, labs, notes, vitals) Consults ordered or reviewed: Medical consult and f/u appreciated Mental Status Examination - Cognitive Function Orientation: Person Memory: Impaired Attention: Poor (some improvement) Concentration: Poor Association: Loose Fund of Knowledge: WNL - Mood Mood: Depressed, Other ("okay") - Affect Affect: Constricted - Speech Speech: Pressured (overproductive) - Formal Thought Process Formal Thought Process: Hallucinations (denies), Delusions, Paranoia, Loosening of associations, Circumstantial - Suicidal Ideation Suicidal Ideation: No - Homicidal Ideation Homicidal Ideation: No Goal/Treatment Plan - Goal/Treatment Plan Need for Continued Stay: Remain at risks for inpatient hospitalization, Severe depression anxiety, Discharge may exacerbated symptoms, Severe functional impairment Progress Toward Problem(s) and Goals/Treatment Plan: milieu, structure, supportive therapy Zyprexa 10 mg am and 10mg hs for psychotic symptoms depakote ER 500mg po at the morning time in 1000 at the nighttime for mood stabilization ativan 0.5 mg twice a day prn When necessary medications social media project manager evaluation We'll monitor closely multivitamins, thiamine, folic acid Ambien at the nighttime for insomnia CT of the head was done within normal limits pt is off 1:1. medical f/u appreciated Estimated Date of D/C: 05/02/17 (we will monitor closely)
[2017-04-28] MEDS: Divalproex 500 mg ER (ONCE DAILY formulation) PO SCH (21:48)
[2017-04-28] MEDS ORDERED: Divalproex 250 mg ER (ONCE DAILY formulation) PO SCH (22:00)
[2017-04-29] MEDS: Multivitamin With Minerals Tab PO SCH (08:36)
[2017-04-29] MEDS: Divalproex 500 mg ER (ONCE DAILY formulation) PO SCH ×2 (08:39→22:01)
--- NOTE | 2017-04-29 14:21 | PCM.PYCHPN ---
Psychiatric Progress Note - Psychiatric Progress Note Patient seen today, length of contact: 30 minutes Patient Chief Complaint: "I feel very sleepy" Problems Identified/Issues Discussed: Suicide/ homicide prevention, past psychiatric h/o, current psychiatric symptoms , medical problems, risk/benefits and alternatives of medications, medications compliance, coping strategies, substance abuse h/o, relapse prevention, importance of follow up with psychiatrist and therapist, discharge plan. Medical Problems: HTN, transaminitis, leukopenia Diagnostic Results: 04/18/17 07:35 04/18/17 07:35 Lab Results 04/18/17 08:00: TSH 3rd Generation 3.59 04/18/17 07:35: Sodium 139, Potassium 3.7, Chloride 105, Carbon Dioxide 27, Anion Gap 11, BUN 12, Creatinine 0.8, Est GFR ( Amer) > 60, Est GFR (Non- Af Amer) > 60, Random Glucose 92, Calcium 8.8, Total Bilirubin 1.7 H, AST 82 H, ALT 99 H, Alkaline Phosphatase 109, Total Protein 7.0, Albumin 3.9, Globulin 3.1 , Albumin/Globulin Ratio 1.3 04/18/17 07:35: WBC 3.4 L, RBC 4.20, Hgb 13.6 L, Hct 38.0 L, MCV 90.5, MCH 32.4 , MCHC 35.8, RDW 12.5, Plt Count 118 L, MPV 9.8, Gran % 66.3, Lymph % (Auto) 22.5, [place] % (Auto) 8.5 H, Eos % (Auto) 1.8, Baso % (Auto) 0.9, Gran # 2.27, Lymph # 0.8 L, [place] # 0.3, Eos # 0.1, Baso # 0.03 04/17/17 07:30: RPR Nonreactive 04/17/17 07:30: TSH 3rd Generation 4.45 04/17/17 07:30: Fasting Glucose 100, Triglycerides 150, Cholesterol 159, LDL Cholesterol Direct 115, HDL Cholesterol 30 04/16/17 23:24: Urine Opiates Screen Negative, Urine Methadone Screen Negative, Ur Barbiturates Screen Negative, Ur Phencyclidine Scrn Negative, Ur Amphetamines Screen Negative, U Benzodiazepines Scrn Negative, U Oth Cocaine Metabols Negative, U Cannabinoids Screen Negative 04/16/17 23:00: Urine Color Yellow, Urine Appearance Clear, Urine pH 6.0, Ur Specific [place] 1.010, Urine Protein Trace H, Urine Glucose (UA) Negative, Urine Ketones Negative, Urine Blood Moderate H, Urine Nitrate Negative, Urine Bilirubin Negative, Urine Urobilinogen 2.0 H, Ur Leukocyte Esterase Negative, Urine RBC 5 - 10, Urine WBC 1 - 3, Ur Epithelial Cells 1 - 3 04/16/17 20:30: Alcohol, Quantitative < 10 04/16/17 20:30: Salicylates < 1 L, Acetaminophen < 10.0 L 04/16/17 20:30: Sodium 136, Potassium 3.3 L, Chloride 103, Carbon Dioxide 23, Anion Gap 13, BUN 12, Creatinine 0.8, Est GFR ( Amer) > 60, Est GFR (Non- Af Amer) > 60, Random Glucose 138 H, Calcium 8.4, Total Bilirubin 1.8 H, AST 73 H, ALT 110 H, Alkaline Phosphatase 117, Total Protein 7.2, Albumin 4.1, Globulin 3.2, Albumin/Globulin Ratio 1.3 04/16/17 20:30: WBC 2.9 L* D, RBC 4.33, Hgb 14.0, Hct 38.5 L, MCV 88.9, MCH 32.3 , MCHC 36.4, RDW 12.4, Plt Count 133, MPV 10.2, Gran % 74.4 H, Lymph % (Auto) 14.9 L, [place] % (Auto) 8.7 H, Eos % (Auto) 1.7, Baso % (Auto) 0.3, Gran # 2.15, Lymph # 0.4 L, [place] # 0.3, Eos # 0.1, Baso # 0.01 Vital Signs Temp Pulse Resp BP Pulse Ox 04/18/17 08:13 98.3 F 123 H 18 133/88 04/17/17 16:42 72 130/89 04/17/17 05:26 97.4 F L 61 20 124/94 H 04/17/17 05:00 86 16 110/72 99 04/17/17 02:59 98.1 F 85 16 112/73 98 04/17/17 02:19 97.9 F 87 16 04/16/17 23:30 98.2 F 81 16 114/76 99 04/16/17 20:35 94 H 16 114/82 95 04/16/17 19:43 20 04/16/17 19:24 98.9 F 104 H 18 159/100 H 96 Temp Pulse Resp BP Pulse Ox 98.3 F 96 H 16 103/74 99 04/19/17 08:05 04/19/17 08:05 04/19/17 08:05 04/19/17 08:05 04/17/17 05:00 CT of the head was done 04/19/17: no acute intracraneall hemorrhages, mild right periorbital/spraorbital and frontotemporal soft tissue swelling, ishcemic chngges in the periventricular white matter changes, some atrophic changes. Temp Pulse Resp BP Pulse Ox 98.7 F 100 H 20 117/80 99 04/21/17 09:05 04/21/17 09:05 04/21/17 09:05 04/21/17 09:05 04/17/17 05:00 Temp Pulse Resp BP Pulse Ox 97.2 F L 78 18 106/72 98 04/24/17 08:00 04/24/17 08:00 04/24/17 08:00 04/24/17 07:43 04/23/17 20:00 Temp Pulse Resp BP Pulse Ox 97.5 F L 59 L 20 98/61 L 98 04/27/17 07:10 04/27/17 07:10 04/27/17 07:10 04/27/17 07:10 04/23/17 20:00 Temp Pulse Resp BP Pulse Ox 98.2 F 70 20 115/84 98 04/28/17 07:32 04/28/17 07:32 04/28/17 07:32 04/28/17 07:32 04/23/17 20:00 Laboratory Results - last 72 hr 04/27/17 07:35 Valproic Acid 76 Temp Pulse Resp BP Pulse Ox 97.6 F 66 20 116/80 98 04/29/17 07:37 04/29/17 07:37 04/29/17 07:37 04/29/17 07:37 04/23/17 20:00 DSM 5 Symptoms Update: Patient is a 46 year old male with history of Schizoaffective Disorder, Obsessive Compulsive Disorder, Severe alcohol use this order, prior [place] ( [place] 10[place] [facility] multiple suicide attempts, poor follow up with after care recommendations and medications who presented to the emergency department after becoming agitated and aggressive at [facility]. pt is still psychotic, disorganized, but much calmer to compare with the last week, pt still has fixed delusions which probably will not get better, but overall pt is socially appropriate, takes shower, less agitated. At the same time pt c/o drowsiness, cogentin will be d/c, ativan d/c, will switch zyprexa to 15mg hs and 5mg at 4pm. no behavioral incidents pt tolerated meds well, no side effects observed or observed AIMS 0, no EPS. Impression: Schizoaffective disorder, bipolar type OCD alcohol use disorder Medication Change: Yes (cogentin d/c, ativan d/c zyprexa redistributed) Medical Record Reviewed: Yes (reports, labs, notes, vitals) Consults ordered or reviewed: Medical consult and f/u appreciated Mental Status Examination - Cognitive Function Orientation: Person Memory: Impaired Attention: Poor (some improvement) Concentration: Poor (somewhat better) Association: Loose Fund of Knowledge: WNL - Mood Mood: Depressed ("I am not depressed"), Other ("okay") - Affect Affect: Constricted - Speech Speech: Pressured (overproductive) - Formal Thought Process Formal Thought Process: Hallucinations (denies), Delusions, Paranoia, Loosening of associations, Circumstantial - Suicidal Ideation Suicidal Ideation: No - Homicidal Ideation Homicidal Ideation: No Goal/Treatment Plan - Goal/Treatment Plan Need for Continued Stay: Remain at risks for inpatient hospitalization, Severe depression anxiety, Discharge may exacerbated symptoms, Severe functional impairment Progress Toward Problem(s) and Goals/Treatment Plan: milieu, structure, supportive therapy Zyprexa 5 mg at 4pm and 15mg hs for psychotic symptoms depakote ER 500mg po at the morning time in 1000 at the nighttime for mood stabilization ativan 0.5 mg twice a day d/c cogentin d/c When necessary medications social media campaign manager evaluation We'll monitor closely multivitamins, thiamine, folic acid Ambien was d/c CT of the head was done within normal limits medical f/u appreciated Estimated Date of D/C: 05/02/17 (we will monitor closely)
[2017-04-30] MEDS: Multivitamin With Minerals Tab PO SCH (07:49)
[2017-04-30] MEDS: Divalproex 500 mg ER (ONCE DAILY formulation) PO SCH ×2 (07:51→22:03)
--- NOTE | 2017-04-30 12:06 | PCM.PYCHPN ---
Psychiatric Progress Note - Psychiatric Progress Note Patient seen today, length of contact: 30 minutes Patient Chief Complaint: "I am little better..., I think medications working well" (of note pt has poor insight into his mental illness, still psychotic, meds compliance) Problems Identified/Issues Discussed: Suicide/ homicide prevention, past psychiatric h/o, current psychiatric symptoms , medical problems, risk/benefits and alternatives of medications, medications compliance, coping strategies, substance abuse h/o, relapse prevention, importance of follow up with psychiatrist and therapist, discharge plan. Medical Problems: HTN, transaminitis, leukopenia (improving) Diagnostic Results: 04/18/17 07:35 04/18/17 07:35 Lab Results 04/18/17 08:00: TSH 3rd Generation 3.59 04/18/17 07:35: Sodium 139, Potassium 3.7, Chloride 105, Carbon Dioxide 27, Anion Gap 11, BUN 12, Creatinine 0.8, Est GFR ( Amer) > 60, Est GFR (Non- Af Amer) > 60, Random Glucose 92, Calcium 8.8, Total Bilirubin 1.7 H, AST 82 H, ALT 99 H, Alkaline Phosphatase 109, Total Protein 7.0, Albumin 3.9, Globulin 3.1 , Albumin/Globulin Ratio 1.3 04/18/17 07:35: WBC 3.4 L, RBC 4.20, Hgb 13.6 L, Hct 38.0 L, MCV 90.5, MCH 32.4 , MCHC 35.8, RDW 12.5, Plt Count 118 L, MPV 9.8, Gran % 66.3, Lymph % (Auto) 22.5, [place] % (Auto) 8.5 H, Eos % (Auto) 1.8, Baso % (Auto) 0.9, Gran # 2.27, Lymph # 0.8 L, [place] # 0.3, Eos # 0.1, Baso # 0.03 04/17/17 07:30: RPR Nonreactive 04/17/17 07:30: TSH 3rd Generation 4.45 04/17/17 07:30: Fasting Glucose 100, Triglycerides 150, Cholesterol 159, LDL Cholesterol Direct 115, HDL Cholesterol 30 04/16/17 23:24: Urine Opiates Screen Negative, Urine Methadone Screen Negative, Ur Barbiturates Screen Negative, Ur Phencyclidine Scrn Negative, Ur Amphetamines Screen Negative, U Benzodiazepines Scrn Negative, U Oth Cocaine Metabols Negative, U Cannabinoids Screen Negative 04/16/17 23:00: Urine Color Yellow, Urine Appearance Clear, Urine pH 6.0, Ur Specific [place] 1.010, Urine Protein Trace H, Urine Glucose (UA) Negative, Urine Ketones Negative, Urine Blood Moderate H, Urine Nitrate Negative, Urine Bilirubin Negative, Urine Urobilinogen 2.0 H, Ur Leukocyte Esterase Negative, Urine RBC 5 - 10, Urine WBC 1 - 3, Ur Epithelial Cells 1 - 3 04/16/17 20:30: Alcohol, Quantitative < 10 04/16/17 20:30: Salicylates < 1 L, Acetaminophen < 10.0 L 04/16/17 20:30: Sodium 136, Potassium 3.3 L, Chloride 103, Carbon Dioxide 23, Anion Gap 13, BUN 12, Creatinine 0.8, Est GFR ( Amer) > 60, Est GFR (Non- Af Amer) > 60, Random Glucose 138 H, Calcium 8.4, Total Bilirubin 1.8 H, AST 73 H, ALT 110 H, Alkaline Phosphatase 117, Total Protein 7.2, Albumin 4.1, Globulin 3.2, Albumin/Globulin Ratio 1.3 04/16/17 20:30: WBC 2.9 L* D, RBC 4.33, Hgb 14.0, Hct 38.5 L, MCV 88.9, MCH 32.3 , MCHC 36.4, RDW 12.4, Plt Count 133, MPV 10.2, Gran % 74.4 H, Lymph % (Auto) 14.9 L, [place] % (Auto) 8.7 H, Eos % (Auto) 1.7, Baso % (Auto) 0.3, Gran # 2.15, Lymph # 0.4 L, [place] # 0.3, Eos # 0.1, Baso # 0.01 Vital Signs Temp Pulse Resp BP Pulse Ox 04/18/17 08:13 98.3 F 123 H 18 133/88 04/17/17 16:42 72 130/89 04/17/17 05:26 97.4 F L 61 20 124/94 H 04/17/17 05:00 86 16 110/72 99 04/17/17 02:59 98.1 F 85 16 112/73 98 04/17/17 02:19 97.9 F 87 16 04/16/17 23:30 98.2 F 81 16 114/76 99 04/16/17 20:35 94 H 16 114/82 95 04/16/17 19:43 20 04/16/17 19:24 98.9 F 104 H 18 159/100 H 96 Temp Pulse Resp BP Pulse Ox 98.3 F 96 H 16 103/74 99 04/19/17 08:05 04/19/17 08:05 04/19/17 08:05 04/19/17 08:05 04/17/17 05:00 CT of the head was done 04/19/17: no acute intracraneall hemorrhages, mild right periorbital/spraorbital and frontotemporal soft tissue swelling, ishcemic chngges in the periventricular white matter changes, some atrophic changes. Temp Pulse Resp BP Pulse Ox 98.7 F 100 H 20 117/80 99 04/21/17 09:05 04/21/17 09:05 04/21/17 09:05 04/21/17 09:05 04/17/17 05:00 Temp Pulse Resp BP Pulse Ox 97.2 F L 78 18 106/72 98 04/24/17 08:00 04/24/17 08:00 04/24/17 08:00 04/24/17 07:43 04/23/17 20:00 Temp Pulse Resp BP Pulse Ox 97.5 F L 59 L 20 98/61 L 98 04/27/17 07:10 04/27/17 07:10 04/27/17 07:10 04/27/17 07:10 04/23/17 20:00 Temp Pulse Resp BP Pulse Ox 98.2 F 70 20 115/84 98 04/28/17 07:32 04/28/17 07:32 04/28/17 07:32 04/28/17 07:32 04/23/17 20:00 Laboratory Results - last 72 hr 04/27/17 07:35 Valproic Acid 76 Temp Pulse Resp BP Pulse Ox 97.6 F 66 20 116/80 98 04/29/17 07:37 04/29/17 07:37 04/29/17 07:37 04/29/17 07:37 04/23/17 20:00 Temp Pulse Resp BP Pulse Ox 97.7 F 60 18 112/69 98 04/30/17 06:34 04/30/17 06:34 04/30/17 06:34 04/30/17 06:34 04/23/17 20:00 DSM 5 Symptoms Update: Patient is a 46 year old male with history of Schizoaffective Disorder, Obsessive Compulsive Disorder, Severe alcohol use this order, prior admissions ( most recently 10/2015 at [facility] [place]), multiple suicide attempts, poor follow up with after care recommendations and medications who presented to the emergency department after becoming agitated and aggressive at [facility]. pt is still psychotic, disorganized, but much calmer to compare with the last week, pt still has fixed delusions which probably will not get better, but overall pt is socially appropriate, takes shower, less agitated. pt is less sedated, personal hygiene is better, but pt has disheveled appearance due to his long dhillon [place]. no behavioral incidents pt tolerated meds well, no side effects observed or observed AIMS 0, no EPS. Impression: Schizoaffective disorder, bipolar type OCD alcohol use disorder Medication Change: Yes (ambien discontinued) Medical Record Reviewed: Yes (reports, labs, notes, vitals) Consults ordered or reviewed: Medical consult and f/u appreciated Mental Status Examination - Cognitive Function Orientation: Person Memory: Impaired Attention: Poor (some improvement) Concentration: Poor (somewhat better) Association: Loose Fund of Knowledge: WNL - Mood Mood: Depressed ("I am not depressed"), Other ("okay") - Affect Affect: Constricted - Speech Speech: Pressured (overproductive) - Formal Thought Process Formal Thought Process: Hallucinations (denies), Delusions (chronic), Paranoia ( chronic), Loosening of associations (chronic), Circumstantial (chronic) - Suicidal Ideation Suicidal Ideation: No - Homicidal Ideation Homicidal Ideation: No Goal/Treatment Plan - Goal/Treatment Plan Need for Continued Stay: Remain at risks for inpatient hospitalization, Severe depression anxiety, Discharge may exacerbated symptoms, Severe functional impairment Progress Toward Problem(s) and Goals/Treatment Plan: milieu, structure, supportive therapy Zyprexa 5 mg at 4pm and 15mg hs for psychotic symptoms depakote ER 500mg po at the morning time in 1000 at the nighttime for mood stabilization Ambien discontinued When necessary medications social organization professor evaluation We'll monitor closely multivitamins, thiamine, folic acid CT of the head was done within normal limits medical f/u appreciated Estimated Date of D/C: 05/02/17 (we will monitor closely)
[2017-05-01] MEDS: Divalproex 500 mg ER (ONCE DAILY formulation) PO SCH ×2 (09:58→21:27)
[2017-05-01] MEDS: Multivitamin With Minerals Tab PO SCH (09:59)
--- NOTE | 2017-05-01 16:15 | PCM.PYCHPN ---
Psychiatric Progress Note - Psychiatric Progress Note Patient seen today, length of contact: 30 minutes Patient Chief Complaint: "I am little better..." Problems Identified/Issues Discussed: Suicide/ homicide prevention, past psychiatric h/o, current psychiatric symptoms , medical problems, risk/benefits and alternatives of medications, medications compliance, coping strategies, substance abuse h/o, relapse prevention, importance of follow up with psychiatrist and therapist, discharge plan. Medical Problems: HTN, transaminitis, leukopenia (improving) Diagnostic Results: 04/18/17 07:35 04/18/17 07:35 Lab Results 04/18/17 08:00: TSH 3rd Generation 3.59 04/18/17 07:35: Sodium 139, Potassium 3.7, Chloride 105, Carbon Dioxide 27, Anion Gap 11, BUN 12, Creatinine 0.8, Est GFR ( Amer) > 60, Est GFR (Non- Af Amer) > 60, Random Glucose 92, Calcium 8.8, Total Bilirubin 1.7 H, AST 82 H, ALT 99 H, Alkaline Phosphatase 109, Total Protein 7.0, Albumin 3.9, Globulin 3.1 , Albumin/Globulin Ratio 1.3 04/18/17 07:35: WBC 3.4 L, RBC 4.20, Hgb 13.6 L, Hct 38.0 L, MCV 90.5, MCH 32.4 , MCHC 35.8, RDW 12.5, Plt Count 118 L, MPV 9.8, Gran % 66.3, Lymph % (Auto) 22.5, [place] % (Auto) 8.5 H, Eos % (Auto) 1.8, Baso % (Auto) 0.9, Gran # 2.27, Lymph # 0.8 L, [place] # 0.3, Eos # 0.1, Baso # 0.03 04/17/17 07:30: RPR Nonreactive 04/17/17 07:30: TSH 3rd Generation 4.45 04/17/17 07:30: Fasting Glucose 100, Triglycerides 150, Cholesterol 159, LDL Cholesterol Direct 115, HDL Cholesterol 30 04/16/17 23:24: Urine Opiates Screen Negative, Urine Methadone Screen Negative, Ur Barbiturates Screen Negative, Ur Phencyclidine Scrn Negative, Ur Amphetamines Screen Negative, U Benzodiazepines Scrn Negative, U Oth Cocaine Metabols Negative, U Cannabinoids Screen Negative 04/16/17 23:00: Urine Color Yellow, Urine Appearance Clear, Urine pH 6.0, Ur Specific [place] 1.010, Urine Protein Trace H, Urine Glucose (UA) Negative, Urine Ketones Negative, Urine Blood Moderate H, Urine Nitrate Negative, Urine Bilirubin Negative, Urine Urobilinogen 2.0 H, Ur Leukocyte Esterase Negative, Urine RBC 5 - 10, Urine WBC 1 - 3, Ur Epithelial Cells 1 - 3 04/16/17 20:30: Alcohol, Quantitative < 10 04/16/17 20:30: Salicylates < 1 L, Acetaminophen < 10.0 L 04/16/17 20:30: Sodium 136, Potassium 3.3 L, Chloride 103, Carbon Dioxide 23, Anion Gap 13, BUN 12, Creatinine 0.8, Est GFR ( Amer) > 60, Est GFR (Non- Af Amer) > 60, Random Glucose 138 H, Calcium 8.4, Total Bilirubin 1.8 H, AST 73 H, ALT 110 H, Alkaline Phosphatase 117, Total Protein 7.2, Albumin 4.1, Globulin 3.2, Albumin/Globulin Ratio 1.3 04/16/17 20:30: WBC 2.9 L* D, RBC 4.33, Hgb 14.0, Hct 38.5 L, MCV 88.9, MCH 32.3 , MCHC 36.4, RDW 12.4, Plt Count 133, MPV 10.2, Gran % 74.4 H, Lymph % (Auto) 14.9 L, [place] % (Auto) 8.7 H, Eos % (Auto) 1.7, Baso % (Auto) 0.3, Gran # 2.15, Lymph # 0.4 L, [place] # 0.3, Eos # 0.1, Baso # 0.01 Vital Signs Temp Pulse Resp BP Pulse Ox 04/18/17 08:13 98.3 F 123 H 18 133/88 04/17/17 16:42 72 130/89 04/17/17 05:26 97.4 F L 61 20 124/94 H 04/17/17 05:00 86 16 110/72 99 04/17/17 02:59 98.1 F 85 16 112/73 98 04/17/17 02:19 97.9 F 87 16 04/16/17 23:30 98.2 F 81 16 114/76 99 04/16/17 20:35 94 H 16 114/82 95 04/16/17 19:43 20 04/16/17 19:24 98.9 F 104 H 18 159/100 H 96 Temp Pulse Resp BP Pulse Ox 98.3 F 96 H 16 103/74 99 04/19/17 08:05 04/19/17 08:05 04/19/17 08:05 04/19/17 08:05 04/17/17 05:00 CT of the head was done 04/19/17: no acute intracraneall hemorrhages, mild right periorbital/spraorbital and frontotemporal soft tissue swelling, ishcemic chngges in the periventricular white matter changes, some atrophic changes. Temp Pulse Resp BP Pulse Ox 98.7 F 100 H 20 117/80 99 04/21/17 09:05 04/21/17 09:05 04/21/17 09:05 04/21/17 09:05 04/17/17 05:00 Temp Pulse Resp BP Pulse Ox 97.2 F L 78 18 106/72 98 04/24/17 08:00 04/24/17 08:00 04/24/17 08:00 04/24/17 07:43 04/23/17 20:00 Temp Pulse Resp BP Pulse Ox 97.5 F L 59 L 20 98/61 L 98 04/27/17 07:10 04/27/17 07:10 04/27/17 07:10 04/27/17 07:10 04/23/17 20:00 Temp Pulse Resp BP Pulse Ox 98.2 F 70 20 115/84 98 04/28/17 07:32 04/28/17 07:32 04/28/17 07:32 04/28/17 07:32 04/23/17 20:00 Laboratory Results - last 72 hr 04/27/17 07:35 Valproic Acid 76 Temp Pulse Resp BP Pulse Ox 97.6 F 66 20 116/80 98 04/29/17 07:37 04/29/17 07:37 04/29/17 07:37 04/29/17 07:37 04/23/17 20:00 Temp Pulse Resp BP Pulse Ox 97.7 F 60 18 112/69 98 04/30/17 06:34 04/30/17 06:34 04/30/17 06:34 04/30/17 06:34 04/23/17 20:00 Temp Pulse Resp BP Pulse Ox 97.7 F 69 18 120/81 98 04/30/17 06:34 05/01/17 15:58 04/30/17 06:34 05/01/17 15:58 04/23/17 20:00 DSM 5 Symptoms Update: Patient is a 46 year old male with history of Schizoaffective Disorder, Obsessive Compulsive Disorder, Severe alcohol use this order, prior admissions ( most recently 10/2015 at [facility] [place]), multiple suicide attempts, poor follow up with after care recommendations and medications who presented to the emergency department after becoming agitated and aggressive at [facility]. pt is still psychotic, disorganized, but much calmer to compare with the last week, insight is improving, pt has some doubts about his delusions. Pt was educated about his psychotic symptoms, pt was more responsive. no behavioral incidents pt tolerated meds well, no side effects observed or observed AIMS 0, no EPS. Impression: Schizoaffective disorder, bipolar type OCD alcohol use disorder Medication Change: No Medical Record Reviewed: Yes (reports, labs, notes, vitals) Consults ordered or reviewed: Medical consult and f/u appreciated Mental Status Examination - Cognitive Function Orientation: Person Memory: Impaired Attention: Poor (some improvement) Concentration: Poor (somewhat better) Association: Loose Fund of Knowledge: WNL - Mood Mood: Depressed ("I am not depressed"), Other ("okay") - Affect Affect: Constricted - Speech Speech: Pressured (overproductive) - Formal Thought Process Formal Thought Process: Hallucinations (denies), Delusions (chronic), Paranoia ( chronic), Loosening of associations (chronic), Circumstantial (chronic) - Suicidal Ideation Suicidal Ideation: No - Homicidal Ideation Homicidal Ideation: No Goal/Treatment Plan - Goal/Treatment Plan Need for Continued Stay: Remain at risks for inpatient hospitalization, Severe depression anxiety, Discharge may exacerbated symptoms, Severe functional impairment Progress Toward Problem(s) and Goals/Treatment Plan: milieu, structure, supportive therapy Zyprexa 5 mg at 4pm and 15mg hs for psychotic symptoms depakote ER 500mg po at the morning time in 1000 at the nighttime for mood stabilization will f/u on depakote level May 02 Ambien discontinued When necessary medications nursing home social worker evaluation We'll monitor closely multivitamins, thiamine, folic acid CT of the head was done within normal limits medical f/u appreciated Estimated Date of D/C: 05/05/17 (we will monitor closely)
[2017-05-02 07:23] VITALS: RESP 20
[2017-05-02] MEDS: Divalproex 500 mg ER (ONCE DAILY formulation) PO SCH ×2 (09:41→21:41)
[2017-05-02] MEDS: Multivitamin With Minerals Tab PO SCH (09:41)
--- NOTE | 2017-05-02 15:45 | PCM.PYCHPN ---
Psychiatric Progress Note - Psychiatric Progress Note Patient seen today, length of contact: 30 minutes Patient Chief Complaint: "may be I have delusions, I don't know" Problems Identified/Issues Discussed: Suicide/ homicide prevention, past psychiatric h/o, current psychiatric symptoms , medical problems, risk/benefits and alternatives of medications, medications compliance, coping strategies, substance abuse h/o, relapse prevention, importance of follow up with psychiatrist and therapist, discharge plan. Medical Problems: HTN, transaminitis, leukopenia (improving) Diagnostic Results: 04/18/17 07:35 04/18/17 07:35 Lab Results 04/18/17 08:00: TSH 3rd Generation 3.59 04/18/17 07:35: Sodium 139, Potassium 3.7, Chloride 105, Carbon Dioxide 27, Anion Gap 11, BUN 12, Creatinine 0.8, Est GFR ( Amer) > 60, Est GFR (Non- Af Amer) > 60, Random Glucose 92, Calcium 8.8, Total Bilirubin 1.7 H, AST 82 H, ALT 99 H, Alkaline Phosphatase 109, Total Protein 7.0, Albumin 3.9, Globulin 3.1 , Albumin/Globulin Ratio 1.3 04/18/17 07:35: WBC 3.4 L, RBC 4.20, Hgb 13.6 L, Hct 38.0 L, MCV 90.5, MCH 32.4 , MCHC 35.8, RDW 12.5, Plt Count 118 L, MPV 9.8, Gran % 66.3, Lymph % (Auto) 22.5, [place] % (Auto) 8.5 H, Eos % (Auto) 1.8, Baso % (Auto) 0.9, Gran # 2.27, Lymph # 0.8 L, [place] # 0.3, Eos # 0.1, Baso # 0.03 04/17/17 07:30: RPR Nonreactive 04/17/17 07:30: TSH 3rd Generation 4.45 04/17/17 07:30: Fasting Glucose 100, Triglycerides 150, Cholesterol 159, LDL Cholesterol Direct 115, HDL Cholesterol 30 04/16/17 23:24: Urine Opiates Screen Negative, Urine Methadone Screen Negative, Ur Barbiturates Screen Negative, Ur Phencyclidine Scrn Negative, Ur Amphetamines Screen Negative, U Benzodiazepines Scrn Negative, U Oth Cocaine Metabols Negative, U Cannabinoids Screen Negative 04/16/17 23:00: Urine Color Yellow, Urine Appearance Clear, Urine pH 6.0, Ur Specific [place] 1.010, Urine Protein Trace H, Urine Glucose (UA) Negative, Urine Ketones Negative, Urine Blood Moderate H, Urine Nitrate Negative, Urine Bilirubin Negative, Urine Urobilinogen 2.0 H, Ur Leukocyte Esterase Negative, Urine RBC 5 - 10, Urine WBC 1 - 3, Ur Epithelial Cells 1 - 3 04/16/17 20:30: Alcohol, Quantitative < 10 04/16/17 20:30: Salicylates < 1 L, Acetaminophen < 10.0 L 04/16/17 20:30: Sodium 136, Potassium 3.3 L, Chloride 103, Carbon Dioxide 23, Anion Gap 13, BUN 12, Creatinine 0.8, Est GFR ( Amer) > 60, Est GFR (Non- Af Amer) > 60, Random Glucose 138 H, Calcium 8.4, Total Bilirubin 1.8 H, AST 73 H, ALT 110 H, Alkaline Phosphatase 117, Total Protein 7.2, Albumin 4.1, Globulin 3.2, Albumin/Globulin Ratio 1.3 04/16/17 20:30: WBC 2.9 L* D, RBC 4.33, Hgb 14.0, Hct 38.5 L, MCV 88.9, MCH 32.3 , MCHC 36.4, RDW 12.4, Plt Count 133, MPV 10.2, Gran % 74.4 H, Lymph % (Auto) 14.9 L, [place] % (Auto) 8.7 H, Eos % (Auto) 1.7, Baso % (Auto) 0.3, Gran # 2.15, Lymph # 0.4 L, [place] # 0.3, Eos # 0.1, Baso # 0.01 Vital Signs Temp Pulse Resp BP Pulse Ox 04/18/17 08:13 98.3 F 123 H 18 133/88 04/17/17 16:42 72 130/89 04/17/17 05:26 97.4 F L 61 20 124/94 H 04/17/17 05:00 86 16 110/72 99 04/17/17 02:59 98.1 F 85 16 112/73 98 04/17/17 02:19 97.9 F 87 16 04/16/17 23:30 98.2 F 81 16 114/76 99 04/16/17 20:35 94 H 16 114/82 95 04/16/17 19:43 20 04/16/17 19:24 98.9 F 104 H 18 159/100 H 96 Temp Pulse Resp BP Pulse Ox 98.3 F 96 H 16 103/74 99 04/19/17 08:05 04/19/17 08:05 04/19/17 08:05 04/19/17 08:05 04/17/17 05:00 CT of the head was done 04/19/17: no acute intracraneall hemorrhages, mild right periorbital/spraorbital and frontotemporal soft tissue swelling, ishcemic chngges in the periventricular white matter changes, some atrophic changes. Temp Pulse Resp BP Pulse Ox 98.7 F 100 H 20 117/80 99 04/21/17 09:05 04/21/17 09:05 04/21/17 09:05 04/21/17 09:05 04/17/17 05:00 Temp Pulse Resp BP Pulse Ox 97.2 F L 78 18 106/72 98 04/24/17 08:00 04/24/17 08:00 04/24/17 08:00 04/24/17 07:43 04/23/17 20:00 Temp Pulse Resp BP Pulse Ox 97.5 F L 59 L 20 98/61 L 98 04/27/17 07:10 04/27/17 07:10 04/27/17 07:10 04/27/17 07:10 04/23/17 20:00 Temp Pulse Resp BP Pulse Ox 98.2 F 70 20 115/84 98 04/28/17 07:32 04/28/17 07:32 04/28/17 07:32 04/28/17 07:32 04/23/17 20:00 Laboratory Results - last 72 hr 04/27/17 07:35 Valproic Acid 76 Temp Pulse Resp BP Pulse Ox 97.6 F 66 20 116/80 98 04/29/17 07:37 04/29/17 07:37 04/29/17 07:37 04/29/17 07:37 04/23/17 20:00 Temp Pulse Resp BP Pulse Ox 97.7 F 60 18 112/69 98 04/30/17 06:34 06/11/17 06:34 04/30/17 06:34 04/30/17 06:34 04/23/17 20:00 Temp Pulse Resp BP Pulse Ox 97.7 F 69 18 120/81 98 04/30/17 06:34 05/01/17 15:58 04/30/17 06:34 05/01/17 15:58 04/23/17 20:00 Laboratory Results - last 24 hr 05/02/17 07:30 Valproic Acid 77 DSM 5 Symptoms Update: Patient is a 46 year old male with history of Schizoaffective Disorder, Obsessive Compulsive Disorder, Severe alcohol use this order, prior [place] ( [place] [facility] [place] multiple suicide attempts, poor follow up with after care recommendations and medications who presented to the emergency department after becoming agitated and aggressive at [facility]. pt is still psychotic, disorganized, but much calmer to compare with the last week, insight is improving, pt has some doubts about his delusions. Pt was educated about his psychotic symptoms, pt was more responsive. no behavioral incidents pt tolerated meds well, no side effects observed or observed AIMS 0, no EPS. Impression: Schizoaffective disorder, bipolar type OCD alcohol use disorder Medication Change: Yes (Zyprexa increased) Medical Record Reviewed: Yes (reports, labs, notes, vitals) Consults ordered or reviewed: Medical consult and f/u appreciated Mental Status Examination - Cognitive Function Orientation: Person Memory: Impaired Attention: Poor (some improvement) Concentration: Poor (somewhat better) Association: Loose Fund of Knowledge: WNL - Mood Mood: Depressed ("I am not depressed"), Other ("okay") - Affect Affect: Constricted - Speech Speech: Pressured (overproductive) - Formal Thought Process Formal Thought Process: Hallucinations (denies), Delusions (chronic), Paranoia ( chronic), Loosening of associations (chronic), Circumstantial (chronic) - Suicidal Ideation Suicidal Ideation: No - Homicidal Ideation Homicidal Ideation: No Goal/Treatment Plan - Goal/Treatment Plan Need for Continued Stay: Remain at risks for inpatient hospitalization, Severe depression anxiety, Discharge may exacerbated symptoms, Severe functional impairment Progress Toward Problem(s) and Goals/Treatment Plan: milieu, structure, supportive therapy Zyprexa 10 mg at 4pm and 15mg hs for psychotic symptoms depakote ER 500mg po at the morning time in 1000 at the nighttime for mood stabilization depakote level May 02 Mikeien discontinued When necessary medications social media senior associate evaluation We'll monitor closely multivitamins, thiamine, folic acid CT of the head was done within normal limits medical f/u appreciated Estimated Date of D/C: 05/05/17 (we will monitor closely)
[2017-05-03] MEDS: Multivitamin With Minerals Tab PO SCH (08:56)
[2017-05-03] MEDS: Divalproex 500 mg ER (ONCE DAILY formulation) PO SCH ×2 (08:57→22:58)
--- NOTE | 2017-05-03 16:13 | PCM.PYCHPN ---
Psychiatric Progress Note - Psychiatric Progress Note Patient seen today, length of contact: 30 minutes Patient Chief Complaint: "may be I have delusions, I don't know" Problems Identified/Issues Discussed: Suicide/ homicide prevention, past psychiatric h/o, current psychiatric symptoms , medical problems, risk/benefits and alternatives of medications, medications compliance, coping strategies, substance abuse h/o, relapse prevention, importance of follow up with psychiatrist and therapist, discharge plan. Medical Problems: HTN, transaminitis, leukopenia (improving) Diagnostic Results: 04/18/17 07:35 04/18/17 07:35 Lab Results 04/18/17 08:00: TSH 3rd Generation 3.59 04/18/17 07:35: Sodium 139, Potassium 3.7, Chloride 105, Carbon Dioxide 27, Anion Gap 11, BUN 12, Creatinine 0.8, Est GFR ( Amer) > 60, Est GFR (Non- Af Amer) > 60, Random Glucose 92, Calcium 8.8, Total Bilirubin 1.7 H, AST 82 H, ALT 99 H, Alkaline Phosphatase 109, Total Protein 7.0, Albumin 3.9, Globulin 3.1 , Albumin/Globulin Ratio 1.3 04/18/17 07:35: WBC 3.4 L, RBC 4.20, Hgb 13.6 L, Hct 38.0 L, MCV 90.5, MCH 32.4 , MCHC 35.8, RDW 12.5, Plt Count 118 L, MPV 9.8, Gran % 66.3, Lymph % (Auto) 22.5, [place] % (Auto) 8.5 H, Eos % (Auto) 1.8, Baso % (Auto) 0.9, Gran # 2.27, Lymph # 0.8 L, [place] # 0.3, Eos # 0.1, Baso # 0.03 04/17/17 07:30: RPR Nonreactive 04/17/17 07:30: TSH 3rd Generation 4.45 04/17/17 07:30: Fasting Glucose 100, Triglycerides 150, Cholesterol 159, LDL Cholesterol Direct 115, HDL Cholesterol 30 04/16/17 23:24: Urine Opiates Screen Negative, Urine Methadone Screen Negative, Ur Barbiturates Screen Negative, Ur Phencyclidine Scrn Negative, Ur Amphetamines Screen Negative, U Benzodiazepines Scrn Negative, U Oth Cocaine Metabols Negative, U Cannabinoids Screen Negative 04/16/17 23:00: Urine Color Yellow, Urine Appearance Clear, Urine pH 6.0, Ur Specific [place] 1.010, Urine Protein Trace H, Urine Glucose (UA) Negative, Urine Ketones Negative, Urine Blood Moderate H, Urine Nitrate Negative, Urine Bilirubin Negative, Urine Urobilinogen 2.0 H, Ur Leukocyte Esterase Negative, Urine RBC 5 - 10, Urine WBC 1 - 3, Ur Epithelial Cells 1 - 3 04/16/17 20:30: Alcohol, Quantitative < 10 04/16/17 20:30: Salicylates < 1 L, Acetaminophen < 10.0 L 04/16/17 20:30: Sodium 136, Potassium 3.3 L, Chloride 103, Carbon Dioxide 23, Anion Gap 13, BUN 12, Creatinine 0.8, Est GFR ( Amer) > 60, Est GFR (Non- Af Amer) > 60, Random Glucose 138 H, Calcium 8.4, Total Bilirubin 1.8 H, AST 73 H, ALT 110 H, Alkaline Phosphatase 117, Total Protein 7.2, Albumin 4.1, Globulin 3.2, Albumin/Globulin Ratio 1.3 04/16/17 20:30: WBC 2.9 L* D, RBC 4.33, Hgb 14.0, Hct 38.5 L, MCV 88.9, MCH 32.3 , MCHC 36.4, RDW 12.4, Plt Count 133, MPV 10.2, Gran % 74.4 H, Lymph % (Auto) 14.9 L, [place] % (Auto) 8.7 H, Eos % (Auto) 1.7, Baso % (Auto) 0.3, Gran # 2.15, Lymph # 0.4 L, [place] # 0.3, Eos # 0.1, Baso # 0.01 Vital Signs Temp Pulse Resp BP Pulse Ox 04/18/17 08:13 98.3 F 123 H 18 133/88 04/17/17 16:42 72 130/89 04/17/17 05:26 97.4 F L 61 20 124/94 H 04/17/17 05:00 86 16 110/72 99 04/17/17 02:59 98.1 F 85 16 112/73 98 04/17/17 02:19 97.9 F 87 16 04/16/17 23:30 98.2 F 81 16 114/76 99 04/16/17 20:35 94 H 16 114/82 95 04/16/17 19:43 20 04/16/17 19:24 98.9 F 104 H 18 159/100 H 96 Temp Pulse Resp BP Pulse Ox 98.3 F 96 H 16 103/74 99 04/19/17 08:05 04/19/17 08:05 04/19/17 08:05 04/19/17 08:05 04/17/17 05:00 CT of the head was done 04/19/17: no acute intracraneall hemorrhages, mild right periorbital/spraorbital and frontotemporal soft tissue swelling, ishcemic chngges in the periventricular white matter changes, some atrophic changes. Temp Pulse Resp BP Pulse Ox 98.7 F 100 H 20 117/80 99 04/21/17 09:05 04/21/17 09:05 04/21/17 09:05 04/21/17 09:05 04/17/17 05:00 Temp Pulse Resp BP Pulse Ox 97.2 F L 78 18 106/72 98 04/24/17 08:00 04/24/17 08:00 04/24/17 08:00 04/24/17 07:43 04/23/17 20:00 Temp Pulse Resp BP Pulse Ox 97.5 F L 59 L 20 98/61 L 98 04/27/17 07:10 04/27/17 07:10 04/27/17 07:10 04/27/17 07:10 04/23/17 20:00 Temp Pulse Resp BP Pulse Ox 98.2 F 70 20 115/84 98 04/28/17 07:32 04/28/17 07:32 04/28/17 07:32 04/28/17 07:32 04/23/17 20:00 Laboratory Results - last 72 hr 04/27/17 07:35 Valproic Acid 76 Temp Pulse Resp BP Pulse Ox 97.6 F 66 20 116/80 98 04/29/17 07:37 04/29/17 07:37 04/29/17 07:37 04/29/17 07:37 04/23/17 20:00 Temp Pulse Resp BP Pulse Ox 97.7 F 60 18 112/69 98 04/30/17 06:34 06/11/17 06:34 04/30/17 06:34 04/30/17 06:34 04/23/17 20:00 Temp Pulse Resp BP Pulse Ox 97.7 F 69 18 120/81 98 04/30/17 06:34 05/01/17 15:58 04/30/17 06:34 05/01/17 15:58 04/23/17 20:00 Laboratory Results - last 24 hr 05/02/17 07:30 Valproic Acid 77 DSM 5 Symptoms Update: Patient is a 46 year old male with history of Schizoaffective Disorder, Obsessive Compulsive Disorder, Severe alcohol use this order, prior admissions ( most recently 10/2015 at [facility] [place]), multiple suicide attempts, poor follow up with after care recommendations and medications who presented to the emergency department after becoming agitated and aggressive at [facility]. pt is still psychotic, disorganized, but much calmer to compare with the last week, insight is improving, pt has some doubts about his delusions. Pt was educated about his psychotic symptoms, pt was more responsive. no behavioral incidents, pt was in agreement with d/c plan on Monday pt tolerated meds well, no side effects observed or observed AIMS 0, no EPS. Impression: Schizoaffective disorder, bipolar type OCD alcohol use disorder Medication Change: Yes (Zyprexa increased) Medical Record Reviewed: Yes (reports, labs, notes, vitals) Consults ordered or reviewed: Medical consult and f/u appreciated Mental Status Examination - Cognitive Function Orientation: Person Memory: Impaired Attention: Poor (some improvement) Concentration: Poor (somewhat better) Association: Loose Fund of Knowledge: WNL - Mood Mood: Depressed ("I am not depressed"), Other ("okay") - Affect Affect: Constricted - Speech Speech: Pressured (overproductive) - Formal Thought Process Formal Thought Process: Hallucinations (denies), Delusions (chronic), Paranoia ( chronic), Loosening of associations (chronic), Circumstantial (chronic) - Suicidal Ideation Suicidal Ideation: No - Homicidal Ideation Homicidal Ideation: No Goal/Treatment Plan - Goal/Treatment Plan Need for Continued Stay: Remain at risks for inpatient hospitalization, Severe depression anxiety, Discharge may exacerbated symptoms, Severe functional impairment Progress Toward Problem(s) and Goals/Treatment Plan: milieu, structure, supportive therapy Zyprexa 10 mg at 4pm and 15mg hs for psychotic symptoms depakote ER 500mg po at the morning time in 1000 at the nighttime for mood stabilization depakote level May 02 Mikeien discontinued When necessary medications adoption social worker evaluation We'll monitor closely multivitamins, thiamine, folic acid CT of the head was done within normal limits medical f/u appreciated Estimated Date of D/C: 05/05/17 (we will monitor closely)
[2017-05-04] MEDS: Divalproex 500 mg ER (ONCE DAILY formulation) PO SCH ×2 (09:45→22:04)
[2017-05-04] MEDS: Multivitamin With Minerals Tab PO SCH (09:45)
--- NOTE | 2017-05-04 15:29 | PCM.PYCHPN ---
Psychiatric Progress Note - Psychiatric Progress Note Patient seen today, length of contact: 30 minutes Patient Chief Complaint: "I will be okay to discharge tomorrow" Problems Identified/Issues Discussed: Suicide/ homicide prevention, past psychiatric h/o, current psychiatric symptoms , medical problems, risk/benefits and alternatives of medications, medications compliance, coping strategies, substance abuse h/o, relapse prevention, importance of follow up with psychiatrist and therapist, discharge plan. Medical Problems: HTN, transaminitis, leukopenia (improving) Diagnostic Results: 04/18/17 07:35 04/18/17 07:35 Lab Results 04/18/17 08:00: TSH 3rd Generation 3.59 04/18/17 07:35: Sodium 139, Potassium 3.7, Chloride 105, Carbon Dioxide 27, Anion Gap 11, BUN 12, Creatinine 0.8, Est GFR ( Amer) > 60, Est GFR (Non- Af Amer) > 60, Random Glucose 92, Calcium 8.8, Total Bilirubin 1.7 H, AST 82 H, ALT 99 H, Alkaline Phosphatase 109, Total Protein 7.0, Albumin 3.9, Globulin 3.1 , Albumin/Globulin Ratio 1.3 04/18/17 07:35: WBC 3.4 L, RBC 4.20, Hgb 13.6 L, Hct 38.0 L, MCV 90.5, MCH 32.4 , MCHC 35.8, RDW 12.5, Plt Count 118 L, MPV 9.8, Gran % 66.3, Lymph % (Auto) 22.5, [place] % (Auto) 8.5 H, Eos % (Auto) 1.8, Baso % (Auto) 0.9, Gran # 2.27, Lymph # 0.8 L, [place] # 0.3, Eos # 0.1, Baso # 0.03 04/17/17 07:30: RPR Nonreactive 04/17/17 07:30: TSH 3rd Generation 4.45 04/17/17 07:30: Fasting Glucose 100, Triglycerides 150, Cholesterol 159, LDL Cholesterol Direct 115, HDL Cholesterol 30 04/16/17 23:24: Urine Opiates Screen Negative, Urine Methadone Screen Negative, Ur Barbiturates Screen Negative, Ur Phencyclidine Scrn Negative, Ur Amphetamines Screen Negative, U Benzodiazepines Scrn Negative, U Oth Cocaine Metabols Negative, U Cannabinoids Screen Negative 04/16/17 23:00: Urine Color Yellow, Urine Appearance Clear, Urine pH 6.0, Ur Specific [place] 1.010, Urine Protein Trace H, Urine Glucose (UA) Negative, Urine Ketones Negative, Urine Blood Moderate H, Urine Nitrate Negative, Urine Bilirubin Negative, Urine Urobilinogen 2.0 H, Ur Leukocyte Esterase Negative, Urine RBC 5 - 10, Urine WBC 1 - 3, Ur Epithelial Cells 1 - 3 04/16/17 20:30: Alcohol, Quantitative < 10 04/16/17 20:30: Salicylates < 1 L, Acetaminophen < 10.0 L 04/16/17 20:30: Sodium 136, Potassium 3.3 L, Chloride 103, Carbon Dioxide 23, Anion Gap 13, BUN 12, Creatinine 0.8, Est GFR ( Amer) > 60, Est GFR (Non- Af Amer) > 60, Random Glucose 138 H, Calcium 8.4, Total Bilirubin 1.8 H, AST 73 H, ALT 110 H, Alkaline Phosphatase 117, Total Protein 7.2, Albumin 4.1, Globulin 3.2, Albumin/Globulin Ratio 1.3 04/16/17 20:30: WBC 2.9 L* D, RBC 4.33, Hgb 14.0, Hct 38.5 L, MCV 88.9, MCH 32.3 , MCHC 36.4, RDW 12.4, Plt Count 133, MPV 10.2, Gran % 74.4 H, Lymph % (Auto) 14.9 L, [place] % (Auto) 8.7 H, Eos % (Auto) 1.7, Baso % (Auto) 0.3, Gran # 2.15, Lymph # 0.4 L, [place] # 0.3, Eos # 0.1, Baso # 0.01 Vital Signs Temp Pulse Resp BP Pulse Ox 04/18/17 08:13 98.3 F 123 H 18 133/88 04/17/17 16:42 72 130/89 04/17/17 05:26 97.4 F L 61 20 124/94 H 04/17/17 05:00 86 16 110/72 99 04/17/17 02:59 98.1 F 85 16 112/73 98 04/17/17 02:19 97.9 F 87 16 04/16/17 23:30 98.2 F 81 16 114/76 99 04/16/17 20:35 94 H 16 114/82 95 04/16/17 19:43 20 04/16/17 19:24 98.9 F 104 H 18 159/100 H 96 Temp Pulse Resp BP Pulse Ox 98.3 F 96 H 16 103/74 99 04/19/17 08:05 04/19/17 08:05 04/19/17 08:05 04/19/17 08:05 04/17/17 05:00 CT of the head was done 04/19/17: no acute intracraneall hemorrhages, mild right periorbital/spraorbital and frontotemporal soft tissue swelling, ishcemic chngges in the periventricular white matter changes, some atrophic changes. Temp Pulse Resp BP Pulse Ox 98.7 F 100 H 20 117/80 99 04/21/17 09:05 04/21/17 09:05 04/21/17 09:05 04/21/17 09:05 04/17/17 05:00 Temp Pulse Resp BP Pulse Ox 97.2 F L 78 18 106/72 98 04/24/17 08:00 04/24/17 08:00 04/24/17 08:00 04/24/17 07:43 04/23/17 20:00 Temp Pulse Resp BP Pulse Ox 97.5 F L 59 L 20 98/61 L 98 04/27/17 07:10 04/27/17 07:10 04/27/17 07:10 04/27/17 07:10 04/23/17 20:00 Temp Pulse Resp BP Pulse Ox 98.2 F 70 20 115/84 98 04/28/17 07:32 04/28/17 07:32 04/28/17 07:32 04/28/17 07:32 04/23/17 20:00 Laboratory Results - last 72 hr 04/27/17 07:35 Valproic Acid 76 Temp Pulse Resp BP Pulse Ox 97.6 F 66 20 116/80 98 04/29/17 07:37 04/29/17 07:37 04/29/17 07:37 04/29/17 07:37 04/23/17 20:00 Temp Pulse Resp BP Pulse Ox 97.7 F 60 18 112/69 98 04/30/17 06:34 04/30/17 06:34 04/30/17 06:34 04/30/17 06:34 04/23/17 20:00 Temp Pulse Resp BP Pulse Ox 97.7 F 69 18 120/81 98 04/30/17 06:34 05/01/17 15:58 04/30/17 06:34 05/01/17 15:58 04/23/17 20:00 Laboratory Results - last 24 hr 05/02/17 07:30 Valproic Acid 77 DSM 5 Symptoms Update: Patient is a 46 year old male with history of Schizoaffective Disorder, Obsessive Compulsive Disorder, Severe alcohol use this order, prior admissions ( most recently 10/2015 at [facility] [place] multiple suicide attempts, poor follow up with after care recommendations and medications who presented to the emergency department after becoming agitated and aggressive at [facility]. pt is still psychotic, disorganized, but much calmer to compare with the last week, insight is improving, pt has some doubts about his delusions. Pt was educated about his psychotic symptoms, pt was more responsive. no behavioral incidents, pt was in agreement with d/c plan on Monday pt tolerated meds well, no side effects observed or observed AIMS 0, no EPS. Impression: Schizoaffective disorder, bipolar type OCD alcohol use disorder Medication Change: Yes (Zyprexa increased) Medical Record Reviewed: Yes (reports, labs, notes, vitals) Consults ordered or reviewed: Medical consult and f/u appreciated Mental Status Examination - Cognitive Function Orientation: Person Memory: Impaired Attention: Poor (some improvement) Concentration: Poor (somewhat better) Association: Loose Fund of Knowledge: WNL - Mood Mood: Depressed ("I am not depressed"), Other ("okay") - Affect Affect: Constricted - Speech Speech: Pressured (overproductive) - Formal Thought Process Formal Thought Process: Hallucinations (denies), Delusions (chronic), Paranoia ( chronic), Loosening of associations (chronic), Circumstantial (chronic) - Suicidal Ideation Suicidal Ideation: No - Homicidal Ideation Homicidal Ideation: No Goal/Treatment Plan - Goal/Treatment Plan Need for Continued Stay: Remain at risks for inpatient hospitalization, Severe depression anxiety, Discharge may exacerbated symptoms, Severe functional impairment Progress Toward Problem(s) and Goals/Treatment Plan: milieu, structure, supportive therapy Zyprexa 10 mg at 4pm and 15mg hs for psychotic symptoms depakote ER 500mg po at the morning time in 1000 at the nighttime for mood stabilization depakote level May 02 Diamond discontinued When necessary medications social media content specialist evaluation We'll monitor closely multivitamins, thiamine, folic acid CT of the head was done within normal limits medical f/u appreciated dc tomorrow Estimated Date of D/C: 05/05/17 (we will monitor closely)
[2017-05-04 16:07] VITALS: PULSE 77
[2017-05-05 07:40] VITALS: BP 119/76; TEMP 97.8
[2017-05-05] MEDS: Multivitamin With Minerals Tab PO SCH (09:11)
[2017-05-05] MEDS: Divalproex 500 mg ER (ONCE DAILY formulation) PO SCH (09:12)
--- NOTE | 2017-05-05 18:04 | PCM.PYCHDC ---
Mental Status Examination - Mental Status Examination Orientation: Person, Place, Situation, Time Memory: Intact Mood: Neutral Affect: Constricted (but reactive, mood congruent) Speech: Appropriate Attention: WNL Concentration: WNL Association: WNL Fund of Knowledge: WNL Formal Thought Process: Delusions (chronic but much better. ) Description of patient's judgement and insight: Pt has improved insight into mental and medical illness, pt was compliant with medications and unit rules and regulations, pt was going to groups, was calm, cooperative, socially appropriate, no behavioral incidents, no agitation, no aggression. Psychotic Thoughts and Behaviors: Pt denied v/a/t hallucinations, denied paranoid ideations, pt does not appear to be psychotic, and thought process is goal directed. Suicidal Ideation: No Current Homicidal Ideation?: No Plan: pt adamantly denied thoughts of harming self or others denied intent or plan. Discharge Summary - Discharge Note Reason for Hospitalization: psychosis, delusions, agitation Psychiatric History (includes Medical, Family, Personal Hx): chronic mental illness Laboratory Data: 04/19/17 07:15 04/19/17 07:30 Lab Results 05/02/17 07:30: Valproic Acid 77 04/27/17 07:35: Valproic Acid 76 04/19/17 07:30: Sodium 139, Potassium 3.9, Chloride 107, Carbon Dioxide 27, Anion Gap 9 L, BUN 9, Creatinine 0.8, Est GFR ( Amer) > 60, Est GFR (Non- Af Amer) > 60, Random Glucose 81, Calcium 9.0, Total Bilirubin 1.6 H, AST 78 H, ALT 94 H, Alkaline Phosphatase 98, Total Protein 6.8, Albumin 3.7, Globulin 3.0 , Albumin/Globulin Ratio 1.2 04/19/17 07:15: WBC 3.4 L, RBC 4.03, Hgb 13.0 L, Hct 36.3 L, MCV 90.1, MCH 32.3 , MCHC 35.8, RDW 12.6, Plt Count 142, MPV 10.0, Gran % 61.3, Lymph % (Auto) 26.4 , [place] % (Auto) 8.8 H, Eos % (Auto) 2.6, Baso % (Auto) 0.9, Gran # 2.09, Lymph # 0.9 L, [place] # 0.3, Eos # 0.1, Baso # 0.03 04/18/17 08:00: TSH 3rd Generation 3.59 04/18/17 07:35: Sodium 139, Potassium 3.7, Chloride 105, Carbon Dioxide 27, Anion Gap 11, BUN 12, Creatinine 0.8, Est GFR ( Amer) > 60, Est GFR (Non- Af Amer) > 60, Random Glucose 92, Calcium 8.8, Total Bilirubin 1.7 H, AST 82 H, ALT 99 H, Alkaline Phosphatase 109, Total Protein 7.0, Albumin 3.9, Globulin 3.1 , Albumin/Globulin Ratio 1.3 04/18/17 07:35: WBC 3.4 L, RBC 4.20, Hgb 13.6 L, Hct 38.0 L, MCV 90.5, MCH 32.4 , MCHC 35.8, RDW 12.5, Plt Count 118 L, MPV 9.8, Gran % 66.3, Lymph % (Auto) 22.5, [place] % (Auto) 8.5 H, Eos % (Auto) 1.8, Baso % (Auto) 0.9, Gran # 2.27, Lymph # 0.8 L, [place] # 0.3, Eos # 0.1, Baso # 0.03 04/17/17 07:30: RPR Nonreactive 04/17/17 07:30: TSH 3rd Generation 4.45 04/17/17 07:30: Fasting Glucose 100, Triglycerides 150, Cholesterol 159, LDL Cholesterol Direct 115, HDL Cholesterol 30 04/16/17 23:24: Urine Opiates Screen Negative, Urine Methadone Screen Negative, Ur Barbiturates Screen Negative, Ur Phencyclidine Scrn Negative, Ur Amphetamines Screen Negative, U Benzodiazepines Scrn Negative, U Oth Cocaine Metabols Negative, U Cannabinoids Screen Negative 04/16/17 23:00: Urine Color Yellow, Urine Appearance Clear, Urine pH 6.0, Ur Specific [place] 1.010, Urine Protein Trace H, Urine Glucose (UA) Negative, Urine Ketones Negative, Urine Blood Moderate H, Urine Nitrate Negative, Urine Bilirubin Negative, Urine Urobilinogen 2.0 H, Ur Leukocyte Esterase Negative, Urine RBC 5 - 10, Urine WBC 1 - 3, Ur Epithelial Cells 1 - 3 04/16/17 20:30: Alcohol, Quantitative < 10 04/16/17 20:30: Salicylates < 1 L, Acetaminophen < 10.0 L 04/16/17 20:30: Sodium 136, Potassium 3.3 L, Chloride 103, Carbon Dioxide 23, Anion Gap 13, BUN 12, Creatinine 0.8, Est GFR ( Amer) > 60, Est GFR (Non- Af Amer) > 60, Random Glucose 138 H, Calcium 8.4, Total Bilirubin 1.8 H, AST 73 H, ALT 110 H, Alkaline Phosphatase 117, Total Protein 7.2, Albumin 4.1, Globulin 3.2, Albumin/Globulin Ratio 1.3 04/16/17 20:30: WBC 2.9 L* D, RBC 4.33, Hgb 14.0, Hct 38.5 L, MCV 88.9, MCH 32.3 , MCHC 36.4, RDW 12.4, Plt Count 133, MPV 10.2, Gran % 74.4 H, Lymph % (Auto) 14.9 L, [place] % (Auto) 8.7 H, Eos % (Auto) 1.7, Baso % (Auto) 0.3, Gran # 2.15, Lymph # 0.4 L, [place] # 0.3, Eos # 0.1, Baso # 0.01 Vital Signs Temp Pulse Resp BP Pulse Ox 05/05/17 07:39 97.8 F 77 20 119/76 05/04/17 16:06 77 120/87 05/04/17 07:47 97.9 F 66 20 100/68 05/03/17 16:12 84 117/84 05/03/17 07:34 98.3 F 76 20 115/60 05/02/17 16:00 84 120/76 05/02/17 07:21 98.1 F 62 20 114/76 05/01/17 15:58 69 120/81 04/30/17 16:24 82 141/98 H 04/30/17 06:34 97.7 F 60 18 112/69 04/29/17 16:00 86 128/89 04/29/17 07:37 97.6 F 66 20 116/80 04/28/17 16:19 87 128/93 H 04/28/17 07:32 98.2 F 70 20 115/84 04/27/17 15:57 88 18 119/86 04/27/17 07:10 97.5 F L 59 L 20 98/61 L 04/27/17 06:54 97.5 F L 59 L 20 146/97 H 04/26/17 16:34 75 124/84 04/26/17 07:17 97.9 F 84 20 122/92 H 04/25/17 16:00 81 117/89 04/24/17 16:00 75 124/89 04/24/17 08:00 97.2 F L 78 18 04/24/17 07:43 97.7 F 73 20 106/72 04/23/17 20:00 96.7 F L 68 18 120/68 98 04/23/17 17:16 104 H 149/90 04/23/17 07:57 97.9 F 75 20 111/64 04/22/17 22:01 110/77 04/22/17 06:51 97.6 F 91 H 17 115/78 04/21/17 15:35 69 111/77 04/21/17 09:05 98.7 F 100 H 20 117/80 04/20/17 16:22 83 129/89 04/20/17 07:33 97.5 F L 83 20 108/73 04/19/17 16:32 74 126/83 04/19/17 08:05 98.3 F 96 H 16 103/74 04/19/17 00:55 98.9 F 107 H 20 133/87 04/18/17 16:52 112 H 104/78 04/18/17 08:13 98.3 F 123 H 18 133/88 04/17/17 16:42 72 130/89 04/17/17 05:26 97.4 F L 61 20 124/94 H 04/17/17 05:00 86 16 110/72 99 04/17/17 02:59 98.1 F 85 16 112/73 98 04/17/17 02:19 97.9 F 87 16 04/16/17 23:30 98.2 F 81 16 114/76 99 04/16/17 20:35 94 H 16 114/82 95 04/16/17 19:43 20 04/16/17 19:24 98.9 F 104 H 18 159/100 H 96 Consultations:: List each consultation separately and include: 1. Reason for request. 2. Findings. 3. Follow-up Consultations: Medical consult and f/u appreciated Summary of Hospital Course include:: 1. Description of specific treatment plan utilized for patients during their course of treatmen. 2. Summarize the time- course for resolution of acute symptoms and/or regressed behaviors. 3. Describe issues identified and worked on during hospitalization. 4. Describe medication utilized. 5. Describe medical problems identified and treated. 6. Reassessment of suicide risk Summary of Hospital Course: Patient is a 46 year old male with history of Schizoaffective Disorder, Obsessive Compulsive Disorder, Severe alcohol use this order, prior admissions ( most recently 10/2015 at [facility] [place] multiple suicide attempts, poor follow up with after care recommendations and medications who presented to the emergency department after becoming agitated and aggressive at [facility]. ER records indicate that patient was brought in combative, aggressive, agitated. Patient required Haldol 5 mg, Benadryl 50 mg IM and Ativan 4 mg IM x1 at 7:45 pm after attempts at verbal de-escalation were unsuccessful. patient was seen at treatment team meeting, patient presented to be disheveled, patient presented in his manic stage, circumstantial and tangential thought process, pressured speech, thought process complicit disorganized, patient feels that he is real appearance were substituted with the foster parents, patient also believes that Mayor Godwin is his real father. Patient was switching from one topic to another topic for example on the question what patient got to the hospital patient started with statement "October 24 and as well as have meaning in that, deviled to over me, I was in [place] doing [place] laundry, do you remember I am Sonido of the [place]...", pt then was taking about the conspiracy theories, seven oceans... Pt has no insight, poor judgment, pulse is unpredictable. Patient was offered to assuage Risperdal to Zyprexa, patient is willing to do so reluctantly. As per staff patient was feeling that devil lives in his body earlier today at the morning time, requested to be by himself, self isolative, psychotic, oddly related to others. pt was stabilized on the following meds: pt was started on ativan, was weaned off mvi, thiamine, folic acid Zyprexa 10 mg at 4pm and 15mg hs for psychotic symptoms depakote ER 500mg po at the morning time in 1000 at the nighttime for mood stabilization depakote level May 02 pt tolerated meds well, no side effects observed or reported pt improved significantly, less psychotic, more organized, still has delusions that he is related to the mayor Tato, but much better. Over the course of this hospitalization pt was attending groups, pt also had medication management, had therapeutic milieu. Overall pt improved significantly, pt's affect became brighter, pt was less depressed, has realistic future oriented plans,less psychotic, not anxious, pt was socially appropriate, no behavioral issues, pts insight improved as well and soon pt deemed to be ready for discharge. At the time of the discharge pt denied been depressed, denied thoughts of harming self or others, denied psychotic symptoms, and pt does not appeared to be psychotic, denied been anxious, was considered to pose no threat to self or others, will be following up with [facility] program IOP, ICMS service, information about follow up appointment, time and address provided to the pt, it is patient responsibility to follow up with outpatient clinic, PMD as well as specialists ( see note for more detailed information). In case pt will need to obtain results of studies pending at discharge pt was provided with contact information of Psychiatric Inpatient unit [phone] as well as Medical Record Department [phone]. Counseling about alcohol cessation provided naltrexon was offered, pt does not want to be on it AA meetings treatment program information was provided by the pt was provided with prescriptions for two weeks and one refill for psychotropic meds and one week for medical meds (see medication reconciliation form) Pt was educated about safety plan in case of worsening of symptoms or in case of suicidal or homicidal ideation call 911 or go to the nearest ER, also was educated to take meds as prescribed and stay away from drugs, pt verbalized understanding. - Diagnosis (1) Schizoaffective disorder Status: Acute - Final Diagnosis (DSM 5) Condition upon Discharge: STABLE Disposition: HOME/ ROUTINE Follow-up Treatment Plan: At the time of the discharge pt denied been depressed, denied thoughts of harming self or others, denied psychotic symptoms, and pt does not appeared to be psychotic, denied been anxious, was considered to pose no threat to self or others, will be following up with [facility] program IOP, ICMS service, information about follow up appointment, time and address provided to the pt, it is patient responsibility to follow up with outpatient clinic, PMD as well as specialists ( see note for more detailed information). In case pt will need to obtain results of studies pending at discharge pt was provided with contact information of Psychiatric Inpatient unit [phone] as well as Medical Record Department [phone]. Counseling about alcohol cessation provided naltrexon was offered, pt does not want to be on it AA meetings treatment program information was provided by the pt was provided with prescriptions for two weeks and one refill for psychotropic meds and one week for medical meds (see medication reconciliation form) Pt was educated about safety plan in case of worsening of symptoms or in case of suicidal or homicidal ideation call 911 or go to the nearest ER, also was educated to take meds as prescribed and stay away from drugs, pt verbalized understanding. Prescriptions/Medication Reconciliation: Divalproex [Depakote ER(ONCE DAILY)] 500 mg PO DAILY #14 ter Divalproex [Depakote ER(ONCE DAILY)] 1,000 mg PO HS #30 ter Folic Acid 1 mg PO DAILY #14 tab Multimineral/Multivitamin [Therapeutic-M Tab] 1 tab PO DAILY #14 tab OLANZapine [Zyprexa] 10 mg PO 1600 #14 tab OLANZapine [Zyprexa] 10 mg PO HS #14 tab Olanzapine [Zyprexa] 5 mg PO HS #14 tablet Thiamine [Vitamin B1 Tab] 100 mg PO DAILY #14 tab - Smoking Cessation Smoking Cessation Medication prescribed: No Reason for not providing: pt does not smoke
== END 2017-05-05 14:18 | disposition home or self-care (01) | DRG 885 ==
LOC: ED 19:18 → ERH 04-17 03:49 → PSYC 04-17 05:04
PROVIDERS: ADMIT Psychiatry & Neurology Psychiatry; ATTEND Psychiatry & Neurology Psychiatry
PROC: 0HQ1XZZ Repair Face Skin, External Approach (ICD-10-PCS; principal; 2017-04-19)
DX: F25.0 Schizoaffective disorder, bipolar type (principal); D70.9 Neutropenia, unspecified; I10 Essential (primary) hypertension; F42.9 Obsessive-compulsive disorder, unspecified; F10.10 Alcohol abuse, uncomplicated; Y90.0 Blood alcohol level of less than 20 mg/100 ml; S01.111A Laceration without foreign body of right eyelid and periocular area, initial encounter; W01.198A Fall on same level from slipping, tripping and stumbling with subsequent striking against other object, initial encounter; Y92.238 Other place in hospital as the place of occurrence of the external cause; Z87.891 Personal history of nicotine dependence